=== PATIENT | female | born 1955 | race Caucasian/White ===

== ENCOUNTER → 2017-12-30 | Outpatient (CLI) | payer OTHER ==
--- NOTE | 2018-01-02 07:15 | MM ---
Reason for exam: screening (asymptomatic). Last mammogram was performed 2 years ago. History: Patient is postmenopausal. Physical Findings: A clinical breast exam by your physician is recommended on an annual basis and results should be correlated with mammographic findings. MG Screening Mammo w CAD Bilateral CC and MLO view(s) were taken. Prior study comparison: January 14, 2016, bilateral MG screening mammo w CAD. January 06, 2015, bilateral MG screening mammo w CAD. The breast tissue is almost entirely fat. There are typically benign round calcifications in both breasts. There is no discrete abnormality. ASSESSMENT: Benign, BI-RAD 2 RECOMMENDATION: Routine screening mammogram of both breasts in 1 year.
== END | disposition home or self-care (01) ==
LOC: RADMAMWWP 11:27
PROVIDERS: ATTEND Family Medicine
DX: Z12.31 Encounter for screening mammogram for malignant neoplasm of breast (principal)
CPT/HCPCS: 77067

== ENCOUNTER → 2019-02-06 | Outpatient (CLI) | payer OTHER ==
[2019-02-06 17:40] LABS: INR 0.9 (<1.2); Prothrombin Time 9.5 sec (9.0-12.0)
== END | disposition home or self-care (01) ==
LOC: LABPAT 16:22
PROVIDERS: ATTEND Anesthesiology
DX: Z01.812 Encounter for preprocedural laboratory examination (principal)
CPT/HCPCS: 36415; 85610; 85730

== ENCOUNTER 2019-02-12 07:30 | Inpatient (IN) | payer OTHER ==
--- NOTE | 2019-02-11 21:22 | HP ---
HISTORY AND PHYSICAL Surgery is scheduled for 02/12/2019. Muna Barillas, 63-year-old patient seen with symptomatic right hip osteoarthritis. Treatment options were discussed with her. She elected to proceed with right total hip arthroplasty. Consents obtained. Medical clearance was provided by Dr. Eric Oliva. PAST MEDICAL HISTORY: Asthma, qox-nzrsdjp-xnxkjwspi diabetes. PAST SURGICAL HISTORY: Noncontributory. MEDICATIONS: Metformin, omeprazole, Synthroid. ALLERGIES: CODEINE, VIBRAMYCIN. SOCIAL HISTORY: She denies tobacco use. PHYSICAL EVALUATION OF THE RIGHT HIP: Limited range of motion with severe pain, diffuse tenderness. Straight leg raise negative. She is 1 inch short right lower extremity. Distal neurovascular exam is intact. RADIOGRAPHS: Radiographs of the right hip reveals severe osteoarthritic changes. IMPRESSION: 1. Right hip osteoarthritis. 2. Hypothyroidism. 3. Zoy-xqjshfk-kclmuoams diabetes. 4. Gastroesophageal reflux disease. PLAN: Direct anterior right total hip arthroplasty. MMODL / IJN: [id number] /
[~2019-02-12 07:30] MED LIST: ACETAMINOPHEN TAB 500 MG TAB PO ONE; DEXAMETHASONE SOD PHOSPHATE 10 MG/ML 1 ML VIAL IV ONE; LACTATED RINGERS 1,000 ML IV SCH; LIDOCAINE 1% 20 ML VIAL (10MG/ML) FOR IV START INTRADERMA PRN; MELOXICAM 7.5 MG TAB PO ONE; ONDANSETRON 4 MG/2 ML VIAL IVP ONE; SCOPOLAMINE 1.5MG/72HR PATCH TRANSDERM ONE; TRANEXAMIC ACID 1,000 MG in SODIUM CHLORIDE 0.9% 100 ML IVPB ONE; ceFAZolin IN SWFI 2 GM/20 ML SYRINGE IVP ONE
[2019-02-12 08:38] LABS: Appearance,Urine Clear (Clear); Bacteria,Urine Rare /hpf; Bilirubin,Urine Negative (Negative); Blood,Urine Small (Negative); Color,Urine Yellow; Glucose,Urine (UA) Negative (Negative); Hyaline Casts,Urine 12 /lpf (0-2); Ketones,Urine Negative (Negative); Leukocyte Esterase,Urine Negative (Negative); Mucus,Urine Occasional /hpf; Nitrite,Urine Negative (Negative); Protein,Urine Negative (Negative); RBC,Urine 2 /hpf (0-5); Specific Gravity,Urine 1.018 (1.001-1.035); Squamous Epithelial Cell,Urine 2 /hpf (0-4); Urobilinogen,Urine <2.0 mg/dL (<2.0); WBC,Urine 1 /hpf (0-5)
[2019-02-12 08:43] LABS: Glucose,Whole Blood 105 mg/dL (75-99)
[2019-02-12] MEDS ORDERED: ROPIVACAINE 246.25 MG, EPINEPHrine 0.5 MG, KETOROLAC 30 MG, cloNIDine HCL/PF 80 MCG, WA... MISCELLANE ONE ×5 (09:59)
[2019-02-12] MEDS ORDERED: SODIUM CHLORIDE 0.9% 100 ML BAG ONE (10:39)
[2019-02-12] MEDS ORDERED: MIDAZOLAM 2 MG/2 ML VIAL ONE (10:39)
[2019-02-12] MEDS ORDERED: TRANEXAMIC ACID 1,000 MG/10 ML VIAL ONE (10:39)
[2019-02-12] MEDS ORDERED: fentaNYL (PF) 50 MCG/ML 2 ML AMP ONE (10:39)
[2019-02-12] MEDS ORDERED: PROPOFOL 10 MG/ML 20 ML VIAL IV ONE (10:39)
[2019-02-12] MEDS ORDERED: ceFAZolin 3,000 MG in SODIUM CHLORIDE 0.9% IRRIGATIO 3,000 ML IRRIGATION ONE (11:10)
[2019-02-12] MEDS ORDERED: LACTATED RINGERS 1,000 ML IV ONE ×2 (11:58)
--- NOTE | 2019-02-12 12:26 | P.OP ---
Date of Procedure: 02/12/19 Preoperative Diagnosis: Right hip osteoarthritis Postoperative Diagnosis: Right hip osteoarthritis Procedure(s) Performed: Direct anterior right total hip arthroplasty Implants: 1. Depuy Corail KA size 10 standard collar press-fit femoral stem 2. Depuy pinnacle 52 mm press-fit acetabular shell 3. Depuy pinnacle polyethylene acetabular liner neutral 36 mm ID 52 mm OD 4. Biolox delta ceramic femoral head +536 mm Anesthesia: local, spinal Surgeon: Abel Shrestha Machine Molder #1: Benny Bullock Estimated Blood Loss (ml): 100 Pathology: other (Femoral head) Condition: stable Disposition: PACU Indications for Procedure: 63-year-old patient seen with symptomatic right hip osteoarthritis. After treatment options were discussed, she elected to proceed with total hip arthroplasty. Operative Findings: see description of procedure Description of Procedure: The patient was taken to the operative suite. Patient underwent a spinal anesthetic by the department of anesthesia. Patient was then transferred to the [place] table. Patient was given preoperative IV antibiotics and TXA. Both lower extremities were placed in standard leg spars. The hip was then prepped and draped in the normal sterile orthopedic fashion. A standard anterior incision was made beginning 3 cm lateral and 1 cm distal to the ASIS extending 10 cm. Dissection was then carried down through the subcutaneous soft tissues down to the fascia overlying the tensor fascia leni. An incision was now made through the fascia. Careful dissection was taken down exposing the tensor fascia leni muscle. A Cobra retractor was now placed along the medial femoral neck and a second one along the lateral femoral neck. The venous circumflex vessels were now identified, cauterized and clipped. We identified the anterior hip capsule. An incision was made through the hip capsule along the lateral border. I performed a partial anterior capsulectomy. Retractors were now placed around the femoral neck itself. A femoral neck cut was now made with a sagittal saw. It was completed with an osteotome at the lateral neck area. The femoral head was now removed without difficulty. The extremity was now rotated to 45 of external rotation. It was locked in position. Residual labrum was now debrided out. Serial reaming was performed of the acetabulum while Sha COBOS assisted holding an anterior retractor for exposure. Once we reached the appropriate size and a trial was position and fit nicely. The appropriate size was now chosen opened and made available. It was introduced into the acetabulum without difficulty. The C-arm/fluoroscopy was now brought into the operative field. We made sure we had a true AP pelvic view. We now under direct C- arm/fluoroscopy introduced into the acetabular component with appropriate version and inclination. I held the cup in appropriate position well Sha COBOS used a mallet to seat the acetabular component. I noted the component now to be well seated and stable. I did introduce one single screw to augment the fixation. Acetabular cup introduce her was removed. The C-arm was pulled back. An appropriate liner was introduced and clicked into position. It was felt to be stable. At this point retractors were removed. The extremity was now placed into 120 external rotation with no traction. The leg was now dropped to the ground and adducted. Appropriate retractors were now positioned along the proximal femur. We also placed our femoral look into position. Additional capsular releasing was performed to gain access to the proximal femur. We now used a box osteotome. A canal finder was now utilized. Serial broaching was now performed with the assistance of Sha COBOS tapping the broaches down with a mallet while held the broach in appropriate rotation and position. This was done until we reached the appropriate size with good overall rotational stability. Appropriate calcar planing was performed. A tri al head/neck was placed into position. The hip was now reduced. The C- arm/fluoroscopy was brought back into the operative field. A spot film was obtained of the nonoperative hip. A spot film was obtained of the trial components. Overlays were performed, we noted good overall alignment and positioning for determining leg length. The C-arm/fluoroscopy was pulled back. Retractors were repositioned and the hip was dislocated. The leg was again taken down to the ground and adducted. Appropriate retractors were repositioned as well as the femoral hook. All trial components were removed. The femoral implant was opened along with the femoral head. The femoral implant was introduced on the appropriate handle into our pre-broached area. I held the component position well Sha COBOS used a mallet to seat the femoral component. The femoral component was now noted to be well seated and stable.. The femoral head was introduced with good positioning and fixation noted. Retractors were now removed. The hip was now reduced. There appeared be good positioning of the hip confirmed on intraoperative fluoroscopy. Spot films were obtained to document this. A second gram of TXA was given. The deep and superficial soft tissues were infiltrated with local analgesic. Bipolar cautery had been utilized intermittently through the procedure for hemostasis. The wound was irrigated copiously with pulse lavage mechanical irrigation. The fascia was repaired with Vicryl suture. The subcutaneous soft tissues were repaired in layers with Vicryl suture. The skin was approximated with skin tone. Sterile dressings were applied. Patient was then awakened, transferred to a bed and taken to recovery in stable condition. Sha COBOS assisted with the complex procedure.
[2019-02-12] MEDS ORDERED: HYDROcodone/APAP 7.5-325MG 1 EACH TAB PO PRN (12:27)
[2019-02-12] MEDS ORDERED: HYDROmorphone 0.5 MG/0.5 ML SYRINGE IVP PRN ×2 (12:27)
[2019-02-12] MEDS ORDERED: ONDANSETRON 4 MG/2 ML VIAL IVP PRN (12:27)
[2019-02-12] MEDS ORDERED: traMADol 50 MG TAB PO PRN (12:27)
[2019-02-12] MEDS ORDERED: NALOXONE 0.4 MG/ML 1 ML VIAL IV PRN (12:27)
[2019-02-12] MEDS ORDERED: HYDROmorphone 1 MG/ML 1 ML SYRINGE IVP PRN (12:27)
[2019-02-12] MEDS ORDERED: KETOROLAC 30 MG/ML 1 ML VIAL IVP ONE (14:04)
[2019-02-12] MEDS: HYDROmorphone 0.5 MG/0.5 ML SYRINGE IVP PRN ×2 (14:21→14:33)
--- NOTE | 2019-02-12 14:47 | XR ---
EXAMINATION TYPE: XR Hip Limited RT, FL guidance operating room DATE OF EXAM: 02/12/2019 COMPARISON: NONE HISTORY: 63-year-old female right hip osteoarthritis, hip replacement FINDINGS: Single anterior image after right hip total arthroplasty. FLUOROSCOPY Fluoroscopy time of 25 seconds was used during right hip replacement. 1 image/s document/s kale ivey. IMPRESSION: Fluoroscopy as above.
[2019-02-12] MEDS ORDERED: IPRATROPIUM-ALBUTEROL 3 ML NEB INHALATION PRN (16:49)
[2019-02-12 17:26] LABS: Glucose,Whole Blood 151 mg/dL (75-99)
[2019-02-12] MEDS: LACTATED RINGERS 1,000 ML IV SCH (17:35)
[2019-02-12] MEDS ORDERED: ALBUTEROL NEBULIZED 2.5 MG/3 ML INHALATION PRN (17:39)
[2019-02-12] MEDS: INSULIN ASPART (NovoLOG) 100 UNIT/ML VIAL SQ SCH ×2 (18:10→20:41)
[2019-02-12 18:45] VITALS: BMI 37.3
[2019-02-12 20:30] LABS: Glucose,Whole Blood 218 mg/dL (75-99)
[2019-02-12] MEDS: ceFAZolin IN SWFI 2 GM/20 ML SYRINGE IVP SCH (20:41)
[2019-02-12] MEDS: SENNOSIDES-DOCUSATE SODIUM 1 EACH TAB PO SCH (20:41)
[2019-02-12] MEDS: IPRATROPIUM-ALBUTEROL 3 ML NEB INHALATION SCH (21:09)
--- NOTE | 2019-02-12 23:40 | CONS ---
CONSULTATION CHIEF COMPLAINT: A 63-year-old white female for medical management consult status post right hip surgery replacement, history of COPD, GERD, hypothyroidism, diabetes mellitus, obesity. She is sitting on the side of bed. She has been up walking status post surgery. No medicines been reordered. No chest pain or shortness of breath. PAST MEDICAL HISTORY: As mentioned above. Surgeries as mentioned above. REVIEW OF SYMPTOMS: 14-point review of systems negative except for mentioned in HPI. PHYSICAL EXAMINATION: Sitting up, eating food for dinner. Temp 97, pulse 71, respiratory rate 16 to 18, blood pressure is 100 over 60s. She is about 95% on room air to 91%. Cardiovascular S1, S2. Lungs transmitted upper sounds. GI soft. Hematology negative Homans. Incision clean, dry, and trach right hip. Hematology negative Homans. ASSESSMENT: 1. Status post right hip replacement. 2. Hypothyroidism. 3. Diabetes mellitus. 4. Hypertension. 5. Chronic obstructive pulmonary disease. Continue current treatment. Follow up in the next 24 to 48 hours for discharge consult. MMODL / IJN: [id number] /
[2019-02-13] MEDS: LACTATED RINGERS 1,000 ML IV SCH ×2 (01:02→17:31)
[2019-02-13] MEDS: ceFAZolin IN SWFI 2 GM/20 ML SYRINGE IVP SCH (03:29)
[2019-02-13] MEDS: HYDROcodone/APAP 7.5-325MG 1 EACH TAB PO PRN ×3 (07:19→23:40)
[2019-02-13] MEDS: LISINOPRIL 2.5 MG TAB PO SCH (07:19)
[2019-02-13] MEDS: LEVOTHYROXINE 100 MCG TAB PO SCH (07:19)
[2019-02-13] MEDS: metFORMIN 500 MG TAB PO SCH (07:20)
[2019-02-13] MEDS: PANTOPRAZOLE 40 MG TABLET PO SCH (07:20)
[2019-02-13] MEDS: MELOXICAM 7.5 MG TAB PO SCH (07:22)
[2019-02-13] MEDS: ENOXAPARIN 40 MG/0.4 ML SYRINGE SQ SCH (07:22)
[2019-02-13] MEDS: IPRATROPIUM-ALBUTEROL 3 ML NEB INHALATION SCH ×4 (07:35→20:04)
[2019-02-13 07:46] LABS: Glucose,Whole Blood 111 mg/dL (75-99)
[2019-02-13] MEDS: INSULIN ASPART (NovoLOG) 100 UNIT/ML VIAL SQ SCH ×4 (07:53→21:02)
[2019-02-13] MEDS ORDERED: FAMOTIDINE 20 MG TAB PO SCH (09:00)
[2019-02-13 10:34] LABS: Anisocytosis Slight; Basophils % (A) 0 %; Eosinophils % (A) 0 %; HCT 31.3 % (34.0-46.0); HGB 9.8 gm/dL (11.4-16.0); Hypochromasia Moderate; Lymphocytes # (A) 1.5 k/uL (1.0-4.8); Lymphocytes % (A) 19 %; MCH 28.8 pg (25.0-35.0); MCHC 31.2 g/dL (31.0-37.0); MCV 92.3 fL (80.0-100.0); Mean Platelet Volume 7.8; Monocytes # (A) 0.4 k/uL (0-1.0); Monocytes % (A) 5 %; Neutrophils # (A) 5.9 k/uL (1.3-7.7); Neutrophils % (A) 75 %; Platelet Count 231 k/uL (150-450); RBC 3.39 m/uL (3.80-5.40); RDW 16.4 % (11.5-15.5); WBC 7.9 k/uL (3.8-10.6)
[2019-02-13 11:37] LABS: Glucose,Whole Blood 118 mg/dL (75-99)
--- NOTE | 2019-02-13 12:12 | P.PN ---
Subjective Progress Note Date: 02/13/19 Principal diagnosis: Status post direct anterior right total hip arthroplasty Patient is evaluated at bedside today, she is resting in her hospital bed at this time. She's been ambulating with therapy at this time. She states that she does have some discomfort throughout the right leg. She is nervous to go home today. She denies any chest pain or shortness of breath. Objective - Vital Signs Vital signs: Vital Signs Temp 98.1 F 02/13/19 07:07 Pulse 66 02/13/19 12:03 Resp 16 02/13/19 07:07 BP 101/52 02/13/19 07:07 Pulse Ox 92 L 02/13/19 07:07 Intake & Output 02/12/19 02/13/19 02/13/19 18:59 06:59 18:59 Intake Total 1401 400 Output Total 100 Balance 1301 400 Intake: IV 1401 400 Lactated Ringers 1,000 ml 400 @ 80 mls/hr IV .[id number] [facility] Rx#:[id number] Output: Estimated Blood Loss 100 Other: Voiding Method Toilet Toilet # Voids 1 1 - Exam Right lower extremity: Incision is clean, dry, and intact. The foam dressings in good position, There is minimal soft tissue swelling and ecchymosis surrounding the medial and lateral aspects of the incision. Calf is soft, no tenderness with palpation. Plantar flexion, dorsiflexion, EHL, FHL are intact. Sensory exam to light touch throughout the extremity is intact, dorsal pedis pulses 2+. - Labs CBC & Chem 7: 02/13/19 09:49 Labs: Abnormal Lab Results - Last 24 Hours (Table) 02/12/19 02/12/19 02/13/19 Range/Units 17:17 20:28 07:08 RBC (3.80-5.40) m/uL Hgb (11.4-16.0) gm/dL Hct (34.0-46.0) % RDW (11.5-15.5) % POC Glucose (mg/dL) 151 H 218 H 111 H (75-99) mg/dL 02/13/19 02/13/19 Range/Units 09:49 11:35 RBC 3.39 L (3.80-5.40) m/uL Hgb 9.8 L (11.4-16.0) gm/dL Hct 31.3 L (34.0-46.0) % RDW 16.4 H (11.5-15.5) % POC Glucose (mg/dL) 118 H (75-99) mg/dL Microbiology - Last 24 Hours (Table) 02/12/19 08:05 Urine Culture - Preliminary Urine,Clean Catch Assessment and Plan Plan: Assessment: Postoperative #1 status post direct anterior right total hip arthroplasty Plan: Pain control, continue oral medication as needed GI and DVT prophylaxis, continue current medication Wound care instructions were discussed Encourage incentive spirometer Continue work with physical therapy Medical recommendations Discharge planning: Patient will be discharged home likely tomorrow Time with Patient: Less than 30
[2019-02-13 16:54] LABS: Glucose,Whole Blood 100 mg/dL (75-99)
[2019-02-13 20:00] LABS: Glucose,Whole Blood 118 mg/dL (75-99)
[2019-02-13] MEDS: SENNOSIDES-DOCUSATE SODIUM 1 EACH TAB PO SCH (21:02)
[2019-02-14] MEDS: LACTATED RINGERS 1,000 ML IV SCH ×2 (03:50→14:19)
[2019-02-14 07:08] LABS: Glucose,Whole Blood 90 mg/dL (75-99)
[2019-02-14] MEDS: INSULIN ASPART (NovoLOG) 100 UNIT/ML VIAL SQ SCH ×4 (07:11→19:59)
[2019-02-14] MEDS: IPRATROPIUM-ALBUTEROL 3 ML NEB INHALATION SCH ×4 (07:12→22:11)
[2019-02-14] MEDS: ENOXAPARIN 40 MG/0.4 ML SYRINGE SQ SCH (07:16)
[2019-02-14] MEDS: HYDROcodone/APAP 7.5-325MG 1 EACH TAB PO PRN ×4 (07:16→20:46)
[2019-02-14] MEDS: metFORMIN 500 MG TAB PO SCH (07:17)
[2019-02-14] MEDS: LEVOTHYROXINE 100 MCG TAB PO SCH (07:17)
[2019-02-14] MEDS: MELOXICAM 7.5 MG TAB PO SCH (07:17)
[2019-02-14] MEDS: PANTOPRAZOLE 40 MG TABLET PO SCH (07:17)
[2019-02-14] MEDS: LISINOPRIL 2.5 MG TAB PO SCH (07:17)
--- NOTE | 2019-02-14 10:48 | P.PN ---
Subjective Progress Note Date: 02/14/19 Principal diagnosis: Status post direct anterior right total hip arthroplasty Patient is evaluated at bedside today, she is resting in her hospital bed at this time. She denies any chest pain or shortness of breath. Objective - Vital Signs Vital signs: Vital Signs Temp 97.8 F 02/14/19 07:41 Pulse 80 02/14/19 07:41 Resp 16 02/14/19 07:41 BP 121/61 02/14/19 07:41 Pulse Ox 95 02/14/19 07:41 Intake & Output 02/13/19 02/14/19 02/14/19 18:59 06:59 18:59 Other: Voiding Method Toilet Toilet Toilet # Voids 1 2 1 - Exam Right lower extremity: Incision is clean, dry, and intact. The foam dressings in good position, There is minimal soft tissue swelling and ecchymosis surrounding the medial and lateral aspects of the incision. Calf is soft, no tenderness with palpation. Plantar flexion, dorsiflexion, EHL, FHL are intact. Sensory exam to light touch throughout the extremity is intact, dorsal pedis pulses 2+. - Labs CBC & Chem 7: 02/13/19 09:49 Labs: Abnormal Lab Results - Last 24 Hours (Table) 02/13/19 02/13/19 02/13/19 Range/Units 11:35 16:52 19:56 POC Glucose (mg/dL) 118 H 100 H 118 H (75-99) mg/dL Microbiology - Last 24 Hours (Table) 02/12/19 08:05 Urine Culture - Final Urine,Clean Catch Assessment and Plan Plan: Assessment: Postoperative #2 status post direct anterior right total hip arthroplasty Plan: Pain control, plan for discharge on oral medication GI and DVT prophylaxis, aspirin 81mg bid Wound care instructions were discussed Encourage incentive spirometer Continue work with physical therapy Medical recommendations Discharge planning: Patient will be discharged home likely today Time with Patient: Less than 30
[2019-02-14 11:35] LABS: Glucose,Whole Blood 92 mg/dL (75-99)
--- NOTE | 2019-02-14 11:47 | P.CONS ---
History of Present Illness - Reason for Consult Consult date: 02/13/19 Medical management asthma, COPD, GERD,HTN, hypothyroidism Requesting physician: Abel Shrestha - Chief Complaint Symptomatic right hip osteoarthritis, S/P elective anterior right total Hip - History of Present Illness This is a 63-year-old female with history of atrial flutter, asthma, COPD, diabetes mellitus, gastroesophageal reflux disease, hypertension, osteoarthri tis, hypothyroidism and multiple other medical issues admitted with symptomatic severe right hip osteoarthritis. Patient is status post elective right total hip arthroplasty, tolerated procedure well. Patient up in chair, ambulating, tolerating exertion well. Using incentive spirometer, up to 1500. Reports surgical pain. Good diet intake with no nausea vomiting or diarrhea. Passing flatus, no bowel movement. Denies abdominal pain. Denies lightheadedness dizziness or focal deficits. Denies chest pain, palpitations or increasing shortness of breath.VSS. Review of Systems Review of systems: CONSTITUTIONAL: No fever, no malaise, no fatigue. HEENT: No recent visual problems or hearing problems. Denied any sore throat. CARDIOVASCULAR: No chest pain, orthopnea, PND, no palpitations, no syncope. PULMONARY: No shortness of breath, no cough, no hemoptysis. GASTROINTESTINAL: No diarrhea, no nausea, no vomiting, no abdominal pain. Normoactive bowel sounds. NEUROLOGICAL: No headaches, no weakness, no numbness. HEMATOLOGICAL: Denies any bleeding or petechiae. GENITOURINARY: Denies any burning micturition, frequency, or urgency. MUSCULOSKELETAL/RHEUMATOLOGICAL: Reports significant right hip/leg pain with associated muscle weakness ENDOCRINE: Denies any polyuria or polydipsia. PSYCHIATRIC: No anxiety, no depression The rest of the 14 point review of systems is negative Past Medical History Past Medical History: Atrial Flutter, Asthma, COPD, Diabetes Mellitus, GERD/Reflux, Hypertension, Osteoarthritis (OA), Pneumonia, Thyroid Disorder Additional Past Medical History / Comment(s): RECENT ADMISSION AT [facility] FOR PNEUMONIA. CHRONIC PNEUMONIA. History of Any Multi-Drug Resistant Organisms: None Reported Past Surgical History: Hysterectomy Additional Past Surgical History / Comment(s): CYST REMOVAL FROM HEAD AND SHOULDER. HEART CATH-NEG. Past Anesthesia/Blood Transfusion Reactions: Motion Sickness, Postoperative Nausea & Vomiting (PONV) Past Psychological History: Anxiety Additional Psychological History / Comment(s): TAKES NO MEDS Smoking Status: Never smoker Past Alcohol Use History: None Reported Additional Past Alcohol Use History / Comment(s): QUIT ABOUT 2008, 1PPD, FOR 30+. Past Drug Use History: None Reported - Past Family History Father Family Medical History: Deep Vein Thrombosis (DVT) Medications and Allergies Home Medications Medication Instructions Recorded Confirmed Type Albuterol Inhaler [Ventolin Hfa 1 puff INHALATION RT-QID PRN 02/06/19 02/12/19 History Inhaler] Ibuprofen [Motrin] 400 - 800 mg PO Q6H PRN 02/06/19 02/12/19 History Levothyroxine Sodium 200 mcg PO QAM 02/06/19 02/12/19 History Lisinopril [Zestril] 2.5 mg PO QAM 02/06/19 02/12/19 History Naproxen Sodium [Aleve] 220 - 440 mg PO Q6H PRN 02/06/19 02/12/19 History Omeprazole 20 mg PO QAM 02/06/19 02/12/19 History metFORMIN HCL 250 mg PO QAM 02/06/19 02/12/19 History Aspirin [Adult Low Dose Aspirin EC] 81 mg PO BID #60 tablet. 02/14/19 Rx Docusate [Colace] 100 mg PO DAILY #30 capsule 02/14/19 Rx HYDROcodone/APAP 7.5-325MG [Anna 1 - 2 each PO Q6HR PRN #56 tab 02/14/19 Rx 7.5] traMADol HCl [Ultram] 50 mg PO Q6H PRN #28 tab 02/14/19 Rx Allergies Allergy/AdvReac Type Severity Reaction Status Date / Time codeine Allergy Nausea & Verified 02/12/19 10:17 Vomiting doxycycline [From Vibramycin] Allergy Rash/Hives Verified 02/12/19 10:17 Physical Exam Vitals: Vital Signs Temp Pulse Pulse Resp BP Pulse Ox 02/13/19 16:07 70 02/13/19 16:00 68 02/13/19 13:14 98.0 F 74 16 142/90 96 02/13/19 12:03 66 02/13/19 11:54 66 02/13/19 07:46 70 02/13/19 07:37 66 02/13/19 07:07 98.1 F 71 16 101/52 92 L 02/13/19 02:21 97.8 F 66 17 111/67 93 L 02/12/19 21:26 72 02/12/19 21:09 72 02/12/19 19:55 97.7 F 71 18 101/68 91 L Intake and Output 02/13/19 02/13/19 02/13/19 06:59 14:59 22:59 Intake Total 400 Balance 400 Intake: IV 400 Lactated Ringers 1,000 ml 400 @ 80 mls/hr IV .[id number] [facility] Rx#:[id number] Other: Voiding Method Toilet # Voids 1 1 PHYSICAL EXAM: VITAL SIGNS: As above GENERAL: Sitting up in chair, no acute distress HEENT: Conjunctivae normal. eyes normal. Oral mucosa moist NECK: No JVD. No thyroid enlargement. No LNs CARDIOVASCULAR: S1, S2 regular.. No murmur RESPIRATION: Breath sounds diminished in the bases. No rhonchi or crackles. No bronchial breathing. ABDOMEN: Soft, nontender . No guarding. no masses palpable. Bowel sounds heard. EXTREMITIES: Minimal right hip/thigh edema and ecchymosis, dressing clean dry and intact. No calf pain or tenderness. Positive DP and PT pulses. PSYCHIATRY: Alert and oriented ?-3, mood and affect normal. NERVOUS SYSTEM: Cranial N 2-12 grossly normal. Moves all 4 limbs. Diffuse weakness No focal deficits. Strength and sensation grossly intact.. Lymphatic system. No LN neck axilla or groin. Results Results: -Severe right hip osteoarthritis, status post anterior right total hip arth roplasty -Diabetes mellitus -Hypertension -Gastroesophageal reflux disease CBC & Chem 7: 02/13/19 09:49 Labs: Abnormal Lab Results - Last 24 Hours (Table) 02/12/19 02/12/19 02/13/19 Range/Units 17:17 20:28 07:08 RBC (3.80-5.40) m/uL Hgb (11.4-16.0) gm/dL Hct (34.0-46.0) % RDW (11.5-15.5) % POC Glucose (mg/dL) 151 H 218 H 111 H (75-99) mg/dL 02/13/19 02/13/19 Range/Units 09:49 11:35 RBC 3.39 L (3.80-5.40) m/uL Hgb 9.8 L (11.4-16.0) gm/dL Hct 31.3 L (34.0-46.0) % RDW 16.4 H (11.5-15.5) % POC Glucose (mg/dL) 118 H (75-99) mg/dL Microbiology - Last 24 Hours (Table) 02/12/19 08:05 Urine Culture - Final Urine,Clean Catch Assessment and Plan Assessment: -Severe right hip osteoarthritis, status post anterior right total hip arthroplasty -Hypertension -Diabetes mellitus -Gastroesophageal reflux disease -COPD, asthma, chronic intermittent-both stable -Hypothyroidism Plan: Continue on current medication regime , Senokot S, monitoring and symptomatic treatment. Pain management, DVT prophylaxis as per primary- orthopedic surgery. PT. GI prophylaxis added to med regime. Home meds have been reviewed and resumed. Close monitoring of Accu-Cheks. Patient expresses fear of taking pain medications related to her daughter is addicted. Reinforced the need for taking pain medications appropriately prn as ordered, throughout this acute phase. Aggressive pulmonary toileting with incentive spirometer reinforced. Futher recommendations to follow. Thank you for allowing us to participate in the care of this pleasant lady. The impression and plan of care has been dictated as directed. : I performed a history and examination of this patient, discussed the same with the dictator. I agree with the dictator's note ,documented as a scribe. Any additional findings or plans will be noted. Time taken: 35 minutes
--- NOTE | 2019-02-14 12:05 | P.PN ---
Subjective Progress Note Date: 02/14/19 This is a 63-year-old female with history of atrial flutter, asthma, COPD, diabetes mellitus, gastroesophageal reflux disease, hypertension, osteoarthritis, hypothyroidism and multiple other medical issues admitted with symptomatic severe right hip osteoarthritis. Patient is status post elective right total hip arthroplasty, tolerated procedure well. Patient up in chair, ambulating, tolerating exertion well. Using incentive spirometer, up to 1500. Reports surgical pain. Good diet intake with no nausea vomiting or diarrhea. Passing flatus, no bowel movement. Denies abdominal pain. Denies lighth eadedness dizziness or focal deficits. Denies chest pain, palpitations or increasing shortness of breath.VSS. 02/14/2019 patient teary-eyed this morning. Apparently patient had refrained from taking pain medication throughout the night. Therefore did not rest well and in uncontrolled pain. Reinstructed on pain management. Recently,Received pain medication. Ambulated in the hallway, tolerated exertion well. Good diet intake, no nausea or vomiting. Positive bowel movement, positive flatus. Denies chest pain, palpitations or shortness of breath. Denies lightheadedness dizziness or focal deficits. Objective - Vital Signs Vital signs: Vital Signs Temp 97.8 F 02/14/19 07:41 Pulse 80 02/14/19 07:41 Resp 16 02/14/19 07:41 BP 121/61 02/14/19 07:41 Pulse Ox 95 02/14/19 07:41 Intake & Output 02/13/19 02/14/19 02/14/19 18:59 06:59 18:59 Other: Voiding Method Toilet Toilet Toilet # Voids 1 2 1 - Exam VITAL SIGNS: As above GENERAL: Sitting up in bed, no acute distress, teary-eyed HEENT: Conjunctivae normal. eyes normal. Oral mucosa moist NECK: No JVD. No thyroid enlargement. No LNs CARDIOVASCULAR: S1, S2 regular.. No murmur RESPIRATION: Breath sounds diminished in the bases. No rhonchi or crackles. No bronchial breathing. ABDOMEN: Soft, nontender . No guarding. no masses palpable. Bowel sounds heard. EXTREMITIES: Minimal right hip/thigh edema and ecchymosis, dressing clean dry and intact. No calf pain or tenderness. Positive DP and PT pulses. PSYCHIATRY: Alert and oriented ?-3, mood and affect normal. NERVOUS SYSTEM: Cranial N 2-12 grossly normal. Moves all 4 limbs. Diffuse weakness No focal deficits. Strength and sensation grossly intact.. Lymphatic system. No LN neck axilla or groin. - Labs CBC & Chem 7: 02/13/19 09:49 Labs: Abnormal Lab Results - Last 24 Hours (Table) 02/13/19 02/13/19 02/13/19 Range/Units 11:35 16:52 19:56 POC Glucose (mg/dL) 118 H 100 H 118 H (75-99) mg/dL Microbiology - Last 24 Hours (Table) 02/12/19 08:05 Urine Culture - Final Urine,Clean Catch Assessment and Plan Assessment: -Severe right hip osteoarthritis, status post anterior right total hip arthroplasty -Hypertension -Diabetes mellitus -Gastroesophageal reflux disease -COPD, asthma, chronic intermittent-both stable -Hypothyroidism Plan: Continue on current medication regime , Senokot S, monitoring and symptomatic treatment. Reinforced pain management/rationale. Aggressive pulmonary toileting with incentive spirometer reinforced.PT-reinforced increas ing ambulation as tolerated and being up in the chair when not ambulating. DVT prophylaxis as per primary- orthopedic surgery. Reevaluate this afternoon, pain management with potential discharge planning in progress as per orthopedic surgery. Follow-up with PCP in one week. Thank you for allowing us to participate in the care of this pleasant lady. The impression and plan of care has been dictated as directed. : I performed a history and examination of this patient, discussed the same with the dictator. I agree with the dictator's note ,documented as a scribe. Any additional findings or plans will be noted. Time taken: 35 minutes
[2019-02-14 16:39] LABS: Glucose,Whole Blood 101 mg/dL (75-99)
[2019-02-14] MEDS: ACETAMINOPHEN TAB 325 MG TAB PO PRN (19:10)
[2019-02-14 19:57] LABS: Glucose,Whole Blood 118 mg/dL (75-99)
[2019-02-14] MEDS: SENNOSIDES-DOCUSATE SODIUM 1 EACH TAB PO SCH (20:04)
[2019-02-15] MEDS: HYDROcodone/APAP 7.5-325MG 1 EACH TAB PO PRN ×3 (02:02→14:24)
[2019-02-15] MEDS: LACTATED RINGERS 1,000 ML IV SCH (02:06)
[2019-02-15 02:40] VITALS: TEMP 98
[2019-02-15] MEDS: LEVOTHYROXINE 100 MCG TAB PO SCH (05:50)
[2019-02-15 07:06] LABS: Glucose,Whole Blood 113 mg/dL (75-99)
[2019-02-15] MEDS: INSULIN ASPART (NovoLOG) 100 UNIT/ML VIAL SQ SCH ×2 (07:46→12:07)
[2019-02-15 08:19] VITALS: BP 111/54; RESP 16
[2019-02-15] MEDS: PANTOPRAZOLE 40 MG TABLET PO SCH (08:19)
[2019-02-15] MEDS: IPRATROPIUM-ALBUTEROL 3 ML NEB INHALATION SCH ×3 (08:21→15:42)
[2019-02-15 08:43] LABS: Anisocytosis Slight; Basophils % (A) 0 %; Eosinophils # (A) 0.1 k/uL (0-0.7); Eosinophils % (A) 2 %; HCT 30.5 % (34.0-46.0); HGB 9.2 gm/dL (11.4-16.0); Hypochromasia Moderate; Lymphocytes # (A) 1.4 k/uL (1.0-4.8); Lymphocytes % (A) 22 %; MCH 28.3 pg (25.0-35.0); MCHC 30.3 g/dL (31.0-37.0); MCV 93.6 fL (80.0-100.0); Mean Platelet Volume 7.2; Monocytes # (A) 0.3 k/uL (0-1.0); Monocytes % (A) 5 %; Neutrophils # (A) 4.3 k/uL (1.3-7.7); Neutrophils % (A) 69 %; Platelet Count 231 k/uL (150-450); RBC 3.26 m/uL (3.80-5.40); RDW 16.2 % (11.5-15.5); WBC 6.3 k/uL (3.8-10.6)
[2019-02-15] MEDS: MELOXICAM 7.5 MG TAB PO SCH (10:52)
[2019-02-15] MEDS: metFORMIN 500 MG TAB PO SCH (10:52)
[2019-02-15] MEDS: LISINOPRIL 2.5 MG TAB PO SCH (10:53)
[2019-02-15] MEDS: ENOXAPARIN 40 MG/0.4 ML SYRINGE SQ SCH (10:53)
[2019-02-15] MEDS: ACETAMINOPHEN TAB 325 MG TAB PO PRN (10:53)
--- NOTE | 2019-02-15 11:24 | P.PN ---
Subjective Progress Note Date: 02/15/19 Principal diagnosis: Status post direct anterior right total hip arthroplasty Patient is evaluated at bedside today, she is resting in her hospital bed at this time. She denies any chest pain or shortness of breath. Objective - Vital Signs Vital signs: Vital Signs Temp 98.0 F 02/15/19 07:21 Pulse 72 02/15/19 08:31 Resp 16 02/15/19 08:31 BP 111/54 02/15/19 07:21 Pulse Ox 90 L 02/15/19 07:21 Intake & Output 02/14/19 02/15/19 02/15/19 18:59 06:59 18:59 Intake Total 280 180 Balance 280 180 Intake: Oral 280 180 Other: Voiding Method Toilet Toilet # Voids 1 - Exam Right lower extremity: Incision is clean, dry, and intact. The foam dressings in good position, There is minimal soft tissue swelling and ecchymosis surrounding the medial and lateral aspects of the incision. Calf is soft, no tenderness with palpation. Plantar flexion, dorsiflexion, EHL, FHL are intact. Sensory exam to light touch throughout the extremity is intact, dorsal pedis pulses 2+. - Labs CBC & Chem 7: 02/15/19 08:09 Labs: Abnormal Lab Results - Last 24 Hours (Table) 02/14/19 02/14/19 02/15/19 Range/Units 16:33 19:55 07:03 RBC (3.80-5.40) m/uL Hgb (11.4-16.0) gm/dL Hct (34.0-46.0) % MCHC (31.0-37.0) g/dL RDW (11.5-15.5) % POC Glucose (mg/dL) 101 H 118 H 113 H (75-99) mg/dL 02/15/19 Range/Units 08:09 RBC 3.26 L (3.80-5.40) m/uL Hgb 9.2 L (11.4-16.0) gm/dL Hct 30.5 L (34.0-46.0) % MCHC 30.3 L (31.0-37.0) g/dL RDW 16.2 H (11.5-15.5) % POC Glucose (mg/dL) (75-99) mg/dL Assessment and Plan Plan: Assessment: Postoperative #3 status post direct anterior right total hip arthroplasty Plan: Pain control, plan for discharge on oral medication GI and DVT prophylaxis, aspirin 81mg bid Wound care instructions were discussed Encourage incentive spirometer Continue work with physical therapy Medical recommendations Discharge planning: Patient will be discharged home today Time with Patient: Less than 30
--- NOTE | 2019-02-15 11:28 | P.DS ---
Providers Date of admission: 02/12/19 07:48 Expected date of discharge: 02/15/19 Attending physician: Abel Shrestha Consults: 02/12/19 12:27 Consult Physician Routine Consulting Provider: Eric Oliva Reason/Comments: Medical management Do you want consulting provider notified?: Yes Primary care physician: Eric Oliva [place] Course: Date of admission: 02/12/2019 Date of discharge: 02/15/2019 Admission diagnosis: Status post direct anterior right total hip arthroplasty Discharge diagnosis: Same Attending physician: Dr. Shrestha Surgical procedures: Direct anterior right total hip arthroplasty Brief history: Patient is a 63-year-old female with a history of progressive primary right hip osteoarthritis. At this point patient has failed conservative treatment measures and has opted to proceed with a elective right total hip arthroplasty. Hospital course: Details of patient's surgery can be found in operative report. Patient tolerated the procedure well and was subsequently transported to orthopedic floor. Patient's orthopeidc and medical care was provided daily. Patient had daily laboratory tests performed for evaluation of overall blood counts. Patient had daily physical therapy to include strengthening range of motion as well as education with walker ambulation. Patient was treated with Lovenox for their postoperative DVT prophylaxis during their inpatient stay. Patient was noted to have a relatively uneventful postoperative course. Patient reported satisfactory pain control with oral pain medications by postoperative day 0. Patient showed satisfactory progress with physical therapy. Patient moved steadily through the program and had no difficulty meeting the goals by postoperative day 3. Given patient's otherwise satisfactory course and having met physical therapy goals, plan is to discharge patient home on postoperative day 3. Discharge condition/disposition: Patient will be discharged home in stable condition. Discharge medications: Instructions are given on resumption of patient's normal daily medications per primary care recommendation, in addition patient will be prescribed Greenwood 7.5 mg/325 mg, tramadol 50 mg, Colace 100 mg, aspirin 81 mg, ferrous sulfate 325 mg, Zofran 8mg. Discharge instructions: 1. Wound care and infection precautions, keep incision dry and covered while showering, no lotions, creams, moisturizers. No soaking, tubs, pools, hottubs. Do not scrub over the incision. 2. Weight-bear [as tolerated] with walker / cane until follow-up. 3. Ice and elevate when necessary. Do not exceed 20 minutes per hour with ice pack. 4. Utilize compression sleeve until seen at first follow up appointment. 5. Visiting nursing care. 6. Home physical therapy. 7. Pain meds and anticoagulants per prescription. 8. Pain medication has potential to cause constipation. Increase oral fluid and fiber intake. Contact primary care provider if you have not had a bowel movement within 48 hours after discharge 9. No anti-inflammatory medication until discussed at first post operative visit, this including Motrin, Aleve, Mobic, Diclofenac. 10. Follow up in office at 2 weeks postop with Sha Bullock PA-C 11. Follow up with your primary care doctor 7-10 days after discharge. 12. Contact [facility] with any questions, . Procedures: Direct anterior right total hip arthroplasty Patient Condition at Discharge: Good Plan - Discharge Summary Discharge Rx Participant: No New Discharge Prescriptions: New Aspirin [Adult Low Dose Aspirin EC] 81 mg PO BID #60 tablet. Docusate [Colace] 100 mg PO DAILY #30 capsule HYDROcodone/APAP 7.5-325MG [Greenwood 7.5] 1 - 2 each PO Q6HR PRN #56 tab PRN Reason: Pain traMADol HCl [Ultram] 50 mg PO Q6H PRN #28 tab PRN Reason: Pain Ferrous Sulfate [Iron (65 MG Elemental)] 325 mg PO BID #30 tab Ondansetron HCl [Zofran] 8 mg PO DAILY PRN #30 tablet PRN Reason: Nausea No Action Levothyroxine Sodium 200 mcg PO QAM Ibuprofen [Motrin] 400 - 800 mg PO Q6H PRN PRN Reason: Pain Naproxen Sodium [Aleve] 220 - 440 mg PO Q6H PRN PRN Reason: Pain Lisinopril [Zestril] 2.5 mg PO QAM metFORMIN HCL 250 mg PO QAM Omeprazole 20 mg PO QAM Albuterol Inhaler [Ventolin Hfa Inhaler] 1 puff INHALATION RT-QID PRN PRN Reason: Shortness Of Breath Or Wheezing Discharge Medication List Albuterol Inhaler [Ventolin Hfa Inhaler] 1 puff INHALATION RT-QID PRN 02/06/19 [History] Ibuprofen [Motrin] 400 - 800 mg PO Q6H PRN 02/06/19 [History] Levothyroxine Sodium 200 mcg PO QAM 02/06/19 [History] Lisinopril [Zestril] 2.5 mg PO QAM 02/06/19 [History] Naproxen Sodium [Aleve] 220 - 440 mg PO Q6H PRN 02/06/19 [History] Omeprazole 20 mg PO QAM 02/06/19 [History] metFORMIN HCL 250 mg PO QAM 02/06/19 [History] Aspirin [Adult Low Dose Aspirin EC] 81 mg PO BID #60 tablet.dr 02/14/19 [Rx] Docusate [Colace] 100 mg PO DAILY #30 capsule 02/14/19 [Rx] Ferrous Sulfate [Iron (65 MG Elemental)] 325 mg PO BID #30 tab 02/14/19 [Rx] HYDROcodone/APAP 7.5-325MG [Greenwood 7.5] 1 - 2 each PO Q6HR PRN #56 tab 02/14/19 [Rx] traMADol HCl [Ultram] 50 mg PO Q6H PRN #28 tab 02/14/19 [Rx] Ondansetron HCl [Zofran] 8 mg PO DAILY PRN #30 tablet 02/15/19 [Rx] Follow up Appointment(s)/Referral(s): [facility],Equipment [NON-STAFF] - Eric Oliva MD [Primary Care Provider] - 02/21/19 9:30 am [facility], [NON-STAFF] - Benny Bullock PAC [PHYSICIAN JACK MACHINE OPERATOR] - 02/28/19 10:20 am Activity/Diet/Wound Care/Special Instructions: Orthopedic Discharge Instructions: 1. Wound care and infection precautions, keep incision dry and covered while showering, no lotions, creams, moisturizers. No soaking, pools, hot tubs. Do not scrub over incision. 2. Weight-bear as tolerated with walker / cane until follow-up. 3. Ice and elevate when necessary. Do not exceed 20 minutes per hour with ice pack. 4. Utilize compression sleeve until seen at first follow up appointment. 5. Pain meds and anticoagulants per prescription. 6. Pain medication has potential to cause constipation. Increase oral fluid and fiber intake. Contact primary care provider if you have not had a bowel movement within 48 hours after discharge. 7. No anti-inflammatory medication until discussed at first post operative visit, this including Motrin, Aleve, Mobic, Diclofenac. 8. Follow up in office at 2 weeks postop with Sha Bullock PA-C 9. Follow up with your primary care doctor 7-10 days after discharge. 10. Contact [facility] with any questions, [phone]. 11. [facility] will deliver walker to the bedside prior to discharge. Wound care instructions: 1. Please remove Optifoam bandage on 02/19/2019 2. After removal of bandage, utilize basic gauze pads 3. Keep incision covered and dry while showering, do not remove tone Discharge Disposition: HOME WITH HOME HEALTH SERVICES
[2019-02-15 11:34] LABS: Glucose,Whole Blood 106 mg/dL (75-99)
[2019-02-15 15:41] VITALS: PULSE 77
== END 2019-02-15 15:50 | disposition home health service (06) | DRG 470 ==
LOC: 2ORMAIN 07:48 → 4SSUR 16:09
PROVIDERS: ADMIT Orthopaedic Surgery; ATTEND Orthopaedic Surgery
PROC: 0SR904A Replacement of Right Hip Joint with Ceramic on Polyethylene Synthetic Substitute, Uncemented, Open Approach (ICD-10-PCS; principal; 2019-02-12 10:15)
DX: M16.11 Unilateral primary osteoarthritis, right hip (principal); E66.9 Obesity, unspecified; E03.9 Hypothyroidism, unspecified; I10 Essential (primary) hypertension; J44.9 Chronic obstructive pulmonary disease, unspecified; J45.20 Mild intermittent asthma, uncomplicated; K21.9 Gastro-esophageal reflux disease without esophagitis; F41.9 Anxiety disorder, unspecified; E11.9 Type 2 diabetes mellitus without complications; Z68.37 Body mass index [BMI] 37.0-37.9, adult; Z79.84 Long term (current) use of oral hypoglycemic drugs; Z79.890 Hormone replacement therapy; Z79.899 Other long term (current) drug therapy; Z90.710 Acquired absence of both cervix and uterus; Z87.01 Personal history of pneumonia (recurrent); Z86.79 Personal history of other diseases of the circulatory system; Z88.1 Allergy status to other antibiotic agents; Z88.5 Allergy status to narcotic agent; Z83.2 Family history of diseases of the blood and blood-forming organs and certain disorders involving the immune mechanism
CPT/HCPCS: 73501; 81001; 85025; 86850; 86900; 86901; 87086; 88300; 94640

== ENCOUNTER 2019-05-16 06:14 | Day surgery (SDC) | payer OTHER ==
[2019-05-15 08:49] VITALS: BMI 36.9
[~2019-05-16 06:14] MED LIST changes: -ACETAMINOPHEN TAB 500 MG TAB PO ONE; +HYDROmorphone 0.5 MG/0.5 ML SYRINGE IVP PRN; -MELOXICAM 7.5 MG TAB PO ONE; +MIDAZOLAM 2 MG/2 ML VIAL IV PRN; -TRANEXAMIC ACID 1,000 MG in SODIUM CHLORIDE 0.9% 100 ML IVPB ONE; -ceFAZolin IN SWFI 2 GM/20 ML SYRINGE IVP ONE
[2019-05-16] MEDS ORDERED: TETRACAINE 0.5% OPHTH (PF) DROPS 4 ML BTL BOTH EYES ONE (06:15)
[2019-05-16] MEDS ORDERED: TETRACAINE 0.5% OPHTH DROPS 15 ML BTL BOTH EYES ONE (06:15)
[2019-05-16 06:45] VITALS: RESP 16; TEMP 98
[2019-05-16] MEDS: TROPICAMIDE 1% OPHTH DROPS 2 ML BTL LEFT EYE ONE ×3 (06:57→07:32)
[2019-05-16] MEDS: PHENYLEPHRINE 2.5% OPHTH DRP 2ML OP NR ×4 (07:01→07:34)
[2019-05-16] MEDS: CYCLOPENTOLATE 1% OPHTH SOLN 2 ML BTL OP ONE ×3 (07:08→07:36)
[2019-05-16] MEDS: MOXIFLOXACIN HCL 0.5% DROPS 3 ML BTL OP ONE ×3 (07:15→07:38)
[2019-05-16 07:33] LABS: Glucose,Whole Blood 80 mg/dL (75-99)
[2019-05-16 07:33] LABS: Glucose,Whole Blood 102 mg/dL (75-99)
[2019-05-16] MEDS ORDERED: MIDAZOLAM 2 MG/2 ML VIAL ONE (07:56)
[2019-05-16] MEDS ORDERED: fentaNYL (PF) 50 MCG/ML 2 ML AMP ONE (07:56)
[2019-05-16] MEDS ORDERED: DUOVISC KIT (BLUE BOX) INTRAOCULA ONE ×2 (07:59)
[2019-05-16] MEDS ORDERED: BRIMONIDINE TARTRATE 0.2% DROPS 5 ML BTL LEFT EYE ONE (07:59)
[2019-05-16] MEDS ORDERED: BALANCED SALT IRRIG SOLN COMB2 15 ML IRRIG.SOLN IRRIGATION ONE (07:59)
[2019-05-16] MEDS ORDERED: CIPROFLOXACIN 0.3% OPHTH SOLN 5 ML BTL LEFT EYE ONE (07:59)
[2019-05-16] MEDS ORDERED: prednisoLONE ACETATE 1% OPHTH DROPS 5 ML BTL LEFT EYE SCH (08:00)
[2019-05-16] MEDS ORDERED: LIDOCAINE (PF) 10 MG/ML 5ML AMP MISCELLANE ONE (08:01)
[2019-05-16] MEDS ORDERED: EPINEPHrine (PF) 0.5 ML in BALANCED SALT IRRIG SOLN COMB2 500 ML IRRIGATION ONE (08:07)
--- NOTE | 2019-05-16 09:05 | P.OP ---
Date of Procedure: 05/16/19 Preoperative Diagnosis: Visually significant cataract, left eye with the use of malyugan ring #2 posterior synechiae, left eye Postoperative Diagnosis: Same as above Procedure(s) Performed: 1 Complex cataract extraction with the use of malyugan ring, left eye 2 synechia lysis, left eye Anesthesia: local Surgeon: Shruti Treviño Estimated Blood Loss (ml): 0 Condition: stable Description of Procedure: The patient was identified in the preoperative holding area and informed consent was obtained. The patient understood the risks benefits alternatives and indications of cataract surgery. Patient showed the different options including intraocular lens options. The left eye was verified with the patient the patient was taken to the operating room. Patient was given IV sedation from the anesthesia team. Anesthetic drops were placed in the operative eye. The left eye was prepped and draped in usual sterile ophthalmic fashion. A lid speculum was placed in the operative eye and the microscope was swung into position. A paracentesis incision was made inferiorly in the left eye. Lidocaine was injected intracameral into the anterior chamber. Viscoelastic was injected into anterior chamber and a clear corneal incision was made temporally. A cystitome and Utrata forceps were used create a continuous curvilinear caps ulorrhexis. Viscoelastic and a blunt probe were used to break synechaei/ Mallyugan ring was then placed to open the pupil. Hydrodissection cannula was then used to hydrate and rotate the lens. Phaco was then carried out to divide the lens into 4 quadrants. Quadrants were removed using phaco emulsification. The irrigation-aspiration handpiece was then used to remove the cortex. Provisc was then used to inflate the capsular bag and the intraocular lens was placed in the bag without incident. The Malyugan ring was then removed. The irrigation- aspiration handpiece was then used to remove the remaining viscoelastic. The wounds were checked and found to be watertight. The pressure was checked and found to be favorable. The speculum was then removed. One drop of pred acetate and one drop of brimonidine and one drop of ciprofloxacin were placed in the operative eye. A shield was taped over the eye and the patient was taken recovery in stable condition. Patient was given instructions for post op care. Plan - Discharge Summary Discharge Rx Participant: No New Discharge Prescriptions: No Action Levothyroxine Sodium 200 mcg PO QAM Lisinopril [Zestril] 2.5 mg PO QAM metFORMIN HCL 250 mg PO QAM Omeprazole 20 mg PO QAM Albuterol Inhaler [Ventolin Hfa Inhaler] 1 puff INHALATION RT-QID PRN PRN Reason: Shortness Of Breath Or Wheezing Discharge Medication List Albuterol Inhaler [Ventolin Hfa Inhaler] 1 puff INHALATION RT-QID PRN 02/06/19 [History] Levothyroxine Sodium 200 mcg PO QAM 02/06/19 [History] Lisinopril [Zestril] 2.5 mg PO QAM 02/06/19 [History] Omeprazole 20 mg PO QAM 02/06/19 [History] metFORMIN HCL 250 mg PO QAM 02/06/19 [History] Discharge Disposition: HOME SELF-CARE
[2019-05-16 09:08] VITALS: BP 132/77; PULSE 78
== END 2019-05-16 09:35 | disposition home or self-care (01) ==
LOC: OR 06:14
PROVIDERS: ATTEND Ophthalmology
DX: H25.12 Age-related nuclear cataract, left eye (principal); H21.542 Posterior synechiae (iris), left eye; H40.119 Primary open-angle glaucoma, unspecified eye; I10 Essential (primary) hypertension; E11.36 Type 2 diabetes mellitus with diabetic cataract; J44.9 Chronic obstructive pulmonary disease, unspecified; Z90.710 Acquired absence of both cervix and uterus; E07.9 Disorder of thyroid, unspecified; Z79.84 Long term (current) use of oral hypoglycemic drugs; Z79.890 Hormone replacement therapy; Z79.899 Other long term (current) drug therapy; Z88.1 Allergy status to other antibiotic agents; Z88.5 Allergy status to narcotic agent
CPT/HCPCS: 66984; V2632; J2250; J0171; J2001; J3010

== ENCOUNTER 2019-06-23 22:24 | Inpatient (IN) | payer OTHER ==
[2019-06-23] MEDS ORDERED: MORPHINE SULFATE 4 MG/ML SYRINGE IVP STA (22:32)
[2019-06-23] MEDS ORDERED: ONDANSETRON 4 MG/2 ML VIAL IVP STA (22:32)
--- NOTE | 2019-06-23 22:33 | ED ---
Chest Pain HPI - General Stated Complaint: STEMI - History of Present Illness Initial Comments: Muna 63-year-old female with a history of hypertension diabetes and a former smoker. Patient is brought to the ER today via EMS for evaluation of chest pain and possible WA. Patient reports around 2 PM she began having some vague chest pain progressively worsened throughout the evening, tonight the pain became unbearable which prompted her call EMS. Upon their arrival to 12-lead EKG was indicative of an inferior wall WA. Patient was given aspirin she was noted to be hypotensive and given a single dose of sublingual nitroglycerin which improved her pain minimally in route to the hospital. 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 - Related Data Home Medications Medication Instructions Recorded Confirmed Albuterol Inhaler [Ventolin Hfa 1 puff INHALATION RT-QID PRN 02/06/19 06/23/19 Inhaler] Levothyroxine Sodium 200 mcg PO DAILY 02/06/19 06/23/19 Lisinopril [Zestril] 2.5 mg PO DAILY 02/06/19 06/23/19 Omeprazole 20 mg PO DAILY 02/06/19 06/23/19 metFORMIN HCL 250 mg PO DAILY 02/06/19 06/23/19 Allergies Allergy/AdvReac Type Severity Reaction Status Date / Time codeine Allergy Rash/Hives Verified 06/23/19 22:38 doxycycline [From Vibramycin] Allergy Rash/Hives Verified 06/23/19 22:38 Review of Systems ROS Statement: Those systems with pertinent positive or pertinent negative responses have been documented in the HPI. ROS Other: All systems not noted in ROS Statement are negative. EKG Findings - EKG Comments: EKG Findings:: EMS EKG was obtained at 2205, there is sinus bradycardia with a rate of 49, normal axis, normal intervals, TX 160, QTC 429, there is ST elevations of 3-4 mm in leads 23 and aVF, there is reciprocal depressions in aVR aVL the one in V2. This is consistent with an inferior wall WA. Repeat EKG upon arrival, , rate is 59 rhythm is sinus bradycardia there is normal axis, there are normal intervals, TX 134, care is 94, QTC is 411, there continues to be ST elevations in leads 23 and aVF with reciprocal depressions in aVL and V1 and V2. This consistent with an acute inferior wall WA. Past Medical History Past Medical History: Atrial Flutter, Asthma, COPD, Diabetes Mellitus, Eye Disorder, GERD/Reflux, Hypertension, Osteoarthritis (OA), Pneumonia, Thyroid Disorder Additional Past Medical History / Comment(s): had pneumonia in February, cataracts, not aware of any arrythmia problem-no tx. for History of Any Multi-Drug Resistant Organisms: None Reported Past Surgical History: Heart Catheterization, Hysterectomy, Joint Replacement Additional Past Surgical History / Comment(s): CYST REMOVAL FROM HEAD AND SHOULDER, right hip replaced February 2019 Past Anesthesia/Blood Transfusion Reactions: Motion Sickness, Postoperative Nausea & Vomiting (PONV) Smoking Status: Former smoker - Past Family History Father Family Medical History: Deep Vein Thrombosis (DVT) General Exam - General Exam Comments Initial Comments: Physical Exam GENERAL: Appears uncomfortable HENT: Normocephalic, Atraumatic. EYES: PERRL, EOMI PULMONARY: Unlabored respirations. CARDIOVASCULAR: Bradycardic, regular Warm and well perfused extremities Radial, DP/PT pulses present equal bilaterally ABDOMEN: Non-distended No pulsatile mass SKIN: Skin is clear with no lesions or rashes and otherwise unremarkable. : Deferred NEUROLOGIC: Patient is alert and oriented x3. Moving all extremities spontaneously MUSCULOSKELETAL: Normal extremities with adequate strength and full range of motion. No lower extremity swelling or edema. No calf tenderness. PSYCHIATRIC: Appropriate situational anxiety Course Vital Signs 06/23/19 06/23/19 06/23/19 22:25 22:35 22:41 Temperature 96.8 F L Pulse Rate 55 L 56 L 51 L Respiratory 20 20 Rate Blood Pressure 138/84 124/84 131/79 O2 Sat by Pulse 97 98 97 Oximetry Chest Pain MDM - Core Measures AMI Core Measures Followed: Yes - Differential Diagnosis AMI - MDM Prehospital EKG was reviewed, consistent with STEMI 2217 Patient care was discussed with Dr. Barbosa, patient has not arrived in the emergency department as of yet however based on EKG we will activate the cath team for STEMI The patient was immediately placed in a monitored bed, and IV was placed, oxygen was administered, and the EKG was evaluated. The ECG revealed an acute ST elevation myocardial infarction. A code STEMI was called by her to arrival time and the chemistry laboratory technician was activated. Defibrillator pads were placed on the patient. The patient was given Aspirin. After a chest x-ray was performed which showed no mediastinal widening IV heparin was given based on the patients weight. The patient had normal hemodynamics during the ED course and was taken directly to the cardiac chemistry laboratory technician. Patient care was discussed with patient's primary care physician Dr. Oliva who is very familiar with the patient. Aware of plan for admission to chemistry laboratory technician and then hospital stay. On the emergency department patient received morphine, Zofran, heparin Patient ran bradycardic but hemodynamically stable and was transferred to the Technologies Division Chair for intervention Critical Care Time Critical Care Time: Yes Total Critical Care Time: 30 Critical Care Time: Critical Care Time Critical care time was exclusive of separately billable procedures and treating other patients and teaching time. Critical care was necessary to treat or prevent imminent or life-threatening deterioration. Given the critical condition in which the patient arrived, the patient was immediately assessed by myself and the nurse, and cardiac monitoring initiated due to the potential for rapid decompensation of the patient's clinical condition. During the course of the patients stay, I spent a considerable amount of time at the bedside performing serial re-evaluations of the patient's hemodynamic and clinical status because of the recognized potential threat to life or limb in this condition. I then had a chance to review not only all of the available current laboratory and radiographic studies obtained today, but I also reviewed old records available to me at the time. Additionally, any ancillary information available including qa auditor records were reviewed. Sequential vital signs were obtained. Disposition Clinical Impression: ST elevation myocardial infarction (STEMI) Disposition: ADMITTED IP TO THIS HOSP Condition: Serious Is patient prescribed a controlled substance at d/c from ED?: No
[2019-06-23] MEDS ORDERED: NALOXONE 0.4 MG/ML 1 ML VIAL IV PRN (22:34)
[2019-06-23] MEDS ORDERED: SODIUM CHLORIDE 0.9% 500 ML 500 ML IV STA (22:34)
[2019-06-23] MEDS ORDERED: HEPARIN SODIUM,PORCINE 5,000 UNIT/ML 1 ML VIAL IV STA (22:34)
[2019-06-23] MEDS ORDERED: ATORVASTATIN 80 MG TAB PO STA (22:43)
--- NOTE | 2019-06-23 22:45 | XR ---
EXAMINATION TYPE: XR chest 1V DATE OF EXAM: 06/23/2019 COMPARISON: NONE HISTORY: Chest pain TECHNIQUE: Single frontal view of the chest is obtained. FINDINGS: There is no heart failure nor confluent pneumonic infiltrate. Costophrenic angles are leti r. There are chest leads. There is slight coarsening of the interstitial markings. IMPRESSION: No heart failure. Mild pulmonary fibrosis.
[2019-06-23] MEDS ORDERED: IV FLUID CONTINUATION 400 ML IV ONE (22:55)
[2019-06-23] MEDS ORDERED: LIDOCAINE 1% INJ 10MG/ML (20 ML MDV) ONE (22:55)
[2019-06-23] MEDS ORDERED: VERAPAMIL 2.5 MG/ML 2 ML AMP ONE (22:55)
--- NOTE | 2019-06-23 23:00 | P.CRDCN ---
History of Present Illness History of present illness: This is Dr. Barbosa dictating a consult on this patient The patient was interviewed and examined by me IMPRESSION / ASSESSMENT: Acute inferior posterior ME Onset of chest pain and 2 PM this afternoon Progressively worsened Vitals stable heart rate in the 50s and 60s blood pressure stable Borderline diabetes Nonsmoker Family history of CAD and ME PLAN: Aspirin and Lipitor heparin and nitroglycerin and morphine Urgent coronary angiogram and appropriate coronary intervention Atorvastatin 80 mg by mouth daily, dual antiplatelet therapy, beta blockers HPI Patient started experiencing anterior chest discomfort at about 2 PM the soft and when she was shopping She did not want to come to the hospital did not coronary family members did not ask for help Benazepril and became progressively worse started radiating through to the back and both shoulders she became more and more uncomfortable She was nauseous No dizziness, no loss of consciousness She called her son and then arrived in the hospital around 10 PM by EMS She is continued to have chest discomfort here, looked uncomfortable and in pain 12-lead ECG showed inferior wall ST elevation, leads to 3 aVF with Q-wave in lead [address] depression with T-wave inversions V1 and V2 ROS: No fever chills or rigors, no cough, phlegm or expectoration, no nausea, vomiting or diarrhea, no hematuria, dysuria, no musculoskeletal complaints, no strokes or seizures, no skin lesions. EXAMINATION: Afebrile 96.8F pulse rate in the 50s and 60s, blood pressure 138/84 mmHg Sounds are clear no rhonchi no crackles Normal heart sounds normal S1 normal S2 no murmurs no gallops no rub No JVD Abdomen is soft nontender Extremities are warm no edema pulses are well palpable both dorsalis pedis pulses are well palpable REVIEW OF LABS, ECG & MEDICAL DATA ST elevation inferior leads, ST depression with T-wave inversions V1 and V2 Past Medical History Past Medical History: Atrial Flutter, Asthma, COPD, Diabetes Mellitus, Eye Disorder, GERD/Reflux, Hypertension, Osteoarthritis (OA), Pneumonia, Thyroid Disorder Additional Past Medical History / Comment(s): had pneumonia in February, cataracts, not aware of any arrythmia problem-no tx. for History of Any Multi-Drug Resistant Organisms: None Reported Past Surgical History: Heart Catheterization, Hysterectomy, Joint Replacement Additional Past Surgical History / Comment(s): CYST REMOVAL FROM HEAD AND SHOULDER, right hip replaced February 2019 Past Anesthesia/Blood Transfusion Reactions: Motion Sickness, Postoperative Nausea & Vomiting (PONV) Smoking Status: Former smoker - Past Family History Father Family Medical History: Deep Vein Thrombosis (DVT) Medications and Allergies Home Medications Medication Instructions Recorded Confirmed Type Albuterol Inhaler [Ventolin Hfa 1 puff INHALATION RT-QID PRN 02/06/19 06/23/19 History Inhaler] Levothyroxine Sodium 200 mcg PO DAILY 02/06/19 06/23/19 History Lisinopril [Zestril] 2.5 mg PO DAILY 02/06/19 06/23/19 History Omeprazole 20 mg PO DAILY 02/06/19 06/23/19 History metFORMIN HCL 250 mg PO DAILY 02/06/19 06/23/19 History Allergies Allergy/AdvReac Type Severity Reaction Status Date / Time codeine Allergy Rash/Hives Verified 06/23/19 22:38 doxycycline [From Vibramycin] Allergy Rash/Hives Verified 06/23/19 22:38 Physical Exam Vitals: Vital Signs Temp Pulse Resp BP Pulse Ox 06/23/19 22:41 51 L 20 131/79 97 06/23/19 22:35 56 L 124/84 98 06/23/19 22:25 96.8 F L 55 L 20 138/84 97 Intake and Output 06/23/19 06/23/19 06/24/19 14:59 22:59 06:59 Other: Weight 86.636 kg Results Current Medications Generic Name Dose Route Start Last Admin Trade Name Freq PRN Reason Stop Dose Admin Sodium Chloride 500 mls @ 999 mls/hr 06/23/19 22:34 06/23/19 22:39 Saline 0.9% IV 06/23/19 23:04 999 mls/hr .Q31M STA Administration Naloxone HCl 0.2 mg 06/23/19 22:34 Narcan IV Q2M PRN Opioid Reversal Intake and Output 06/23/19 06/23/19 06/24/19 14:59 22:59 06:59 Other: Weight 86.636 kg Patient Weight 06/24/19 06:59 Weight 86.636 kg
[2019-06-23] MEDS ORDERED: LIDOCAINE 1% INJ 10MG/ML (20 ML MDV) SQ ONE (23:02)
[2019-06-23 23:04] LABS: Albumin 4.1 g/dL (3.5-5.0); Potassium 4.1 mmol/L (3.5-5.1); Total Bilirubin 0.2 mg/dL (0.2-1.3); Total Protein 7.3 g/dL (6.3-8.2)
[2019-06-23] MEDS ORDERED: VERAPAMIL SYRINGE (5 MG/10 ML) INTRAARTER ONE (23:04)
[2019-06-23] MEDS ORDERED: BIVALIRUDIN BOLUS 250 MG/50 ML IV ONE (23:15)
[2019-06-23] MEDS ORDERED: TICAGRELOR 90 MG TAB ONE (23:16)
[2019-06-23] MEDS ORDERED: BIVALIRUDIN 250 MG in SODIUM CHLORIDE 0.9% 50 ML IV ONE (23:16)
[2019-06-23] MEDS ORDERED: TICAGRELOR 90 MG TAB PO ONE (23:17)
[2019-06-23 23:19] LABS: Anisocytosis Slight; Basophils # (A) 0.2 k/uL (0-0.2); Basophils % (A) 2 %; Eosinophils # (A) 0.2 k/uL (0-0.7); Eosinophils % (A) 1 %; HCT 41.5 % (34.0-46.0); HGB 13.4 gm/dL (11.4-16.0); Hypochromasia Slight; Lymphocytes # (A) 5.4 k/uL (1.0-4.8); Lymphocytes % (A) 48 %; MCH 28.2 pg (25.0-35.0); MCHC 32.4 g/dL (31.0-37.0); MCV 87.3 fL (80.0-100.0); Mean Platelet Volume 7.6; Monocytes # (A) 0.6 k/uL (0-1.0); Monocytes % (A) 5 %; Neutrophils # (A) 4.6 k/uL (1.3-7.7); Neutrophils % (A) 41 %; Platelet Count 258 k/uL (150-450); RBC 4.75 m/uL (3.80-5.40); RDW 16.2 % (11.5-15.5); WBC 11.1 k/uL (3.8-10.6)
[2019-06-23] MEDS ORDERED: NITROGLYCERIN 1000MCG/10ML SYRINGE INTRACORON ONE (23:20)
[2019-06-23 23:21] LABS: INR 0.9 (<1.2); Partial Thromboplastin Time 25.5 sec (22.0-30.0); Prothrombin Time 9.5 sec (9.0-12.0)
[2019-06-23] MEDS ORDERED: IOPAMIDOL-370 125ML BTL INJ ONE (23:22)
[2019-06-23] MEDS ORDERED: SODIUM CHLORIDE 0.9% 1,000 ML IV ONE (23:40)
[2019-06-23] MEDS ORDERED: IOPAMIDOL-370 100ML BTL INJ ONE (23:40)
[2019-06-23] MEDS ORDERED: SODIUM CHLORIDE 0.9% 1,000 ML IV SCH (23:45)
[2019-06-23] MEDS ORDERED: ATROPINE SULFATE 0.1 MG/ML 10ML SYRINGE IV PRN (23:52)
[2019-06-23] MEDS ORDERED: ZOLPIDEM 5 MG TAB PO PRN (23:52)
[2019-06-23] MEDS ORDERED: RX INFO: IV CONTRAST WAS GIVEN 1 EACH MISC MISCELLANE PRN (23:52)
[2019-06-23] MEDS ORDERED: NITROGLYCERIN SL TABS 0.4 MG TAB SUBLINGUAL PRN (23:52)
[2019-06-23] MEDS ORDERED: MAG HYDROX/AL HYDROX/SIMETH 30 ML CUP PO PRN (23:52)
[2019-06-24 00:07] LABS: Glucose,Whole Blood 152 mg/dL (75-99)
[2019-06-24 00:28] LABS: Large Platelets Present
[2019-06-24 00:51] VITALS: BMI 39.2
[2019-06-24] MEDS: ACETAMINOPHEN TAB 325 MG TAB PO PRN (01:27)
--- NOTE | 2019-06-24 03:59 | CC ---
CARDIAC CATHETERIZATION REPORT Mrs. Barillas is a 63-year-old female with no prior history of coronary artery disease who presented with symptoms of chest discomfort associated with ST-segment elevation and ST depression in the anterior precordial leads. In view of that, and after evaluation by Dr. Barbosa, recommendation made regarding cardiac catheterization. The procedure as well as risks and complications were discussed with the patient who is in full understanding and agreement. DESCRIPTION OF PROCEDURE: Patient was brought to the laboratory development technician after receiving fentanyl and Benadryl and achieving moderate conscious sedated state. Using Xylocaine anesthesia and Seldinger technique, a 6-Guyanese sheath was introduced in the right radial artery. Selective right and left coronary angiography was performed using 6-Guyanese FR4 guiding catheter and 6-Guyanese FL 3.5 guiding catheter. Images of the coronary arteries were obtained. Angioplasty and stenting of the left circumflex were performed. Following that, 5-Guyanese tight pigtail catheter was introduced in the left ventricle and a 30-degree LACKEY view of the left ventricle was obtained. Following that, catheter and sheath were removed. Hemostasis was obtained with deployment of a TR band. There was no immediate complication. Patient is returned to her room in stable condition. Of note, the patient received Angiomax per protocol as well as intra-arterial verapamil and oral loading dose of Brilinta. FINDINGS: LEFT MAIN: This is a large-sized vessel, bifurcating into left circumflex, left anterior descending artery. Left main coronary artery has no evidence of high-grade stenosis. LEFT ANTERIOR DESCENDING ARTERY: This is a large-sized vessel reaching toward the apex, tapers down distally giving rise to a large diagonal branch in the proximal segment. At the takeoff of the diagonal branch, there is a 90% stenosis involving the takeoff of the diagonal branch. The rest of the vessel has no high-grade stenosis. LEFT CIRCUMFLEX: This is a nondominant vessel, that is totally occluded proximally. RIGHT CORONARY ARTERY: This is a large dominant vessel bifurcating PDA segment branches. The right coronary artery has a 20% to 30% plaque in the proximal mid segment. The rest of the vessel has no high-grade stenosis. LEFT VENTRICULOGRAM: Left ventriculogram is performed in 30-degree LACKEY view and revealed a mid anterior wall hypokinesis. Ejection fraction is estimated 50%. There was no significant mitral regurgitation. HEMODYNAMICS: There was no gradient across the aortic valve. The left ventricle end-diastolic pressure was 20 mmHg. CONCLUSION: 1. Acutely occluded proximal left circumflex. 2. Critical stenosis involving the proximal LAD at the takeoff of the first diagonal branch. 3. Mild disease in the right coronary artery. RECOMMENDATIONS: In view of findings and anatomy, I recommend proceeding with angioplasty and stenting of the left circumflex. The procedure as well as risks and complications were discussed with the patient who is in full understanding and agreement. MMZENAIDA / VIRGILN: [id number] /
--- NOTE | 2019-06-24 03:59 | PTCA ---
PERCUTANEOUSTRANS CORORONARY ANGIOGRAPHY Mrs. Barillas is a 63-year-old female with no prior history of cardiac disease who presented with an acute myocardial infarction, underwent coronary angiography, was found to have occluded proximal left circumflex. In view of that, recommendation made regarding angioplasty and stenting. The procedures as well as risks and complications were discussed with the patient who is in full understanding and agreement. DESCRIPTION OF PROCEDURE: Using the 6-Bruneian FL 3.5 guiding catheter after cannulating the left main, a 0.014 balanced medium weight J-wire was advanced across the lesion, positioned distally. Subsequently, 2.5 x 12 mm Euphora balloon was advanced and one inflation at 8 atmospheres was done. Following that, the balloon was removed and a 2.5 x 15 mm Xience Stefani stent was advanced, deployed and post dilated at 16 atmospheres. After the last inflation, after appropriate wait, the balloon and the guidewire were withdrawn back in the guiding catheter. Images were obtained and repeated. Those images reveal stable successful stenting. At that point, the balloon and the guidewire and the guiding catheter were removed and an left ventriculogram was performed using a tight pigtail catheter. Following that, catheter and sheath were removed. Hemostasis was obtained with deployment of a TR band. There was no immediate complication. Patient is returned to her room in stable condition. Of note, the patient received Angiomax per protocol as well as oral loading dose of Brilinta. Her chest discomfort resolved as well as EKG changes by the end of the procedure. RESULTS: Successful stenting of the proximal left circumflex with reduction of stenosis from 100% to 0%. There was mild disease involving the obtuse marginal branch of 30-40 percent distal to the stented segment. RECOMMENDATION: Patient will be continued on aspirin, Brilinta, beta blockers and statin. She will be evaluated regarding the need to undergo revascularization of her LAD. Those findings and recommendation were discussed with the patient and her family who are in full understanding and agreement. Duration of procedure: 36 minutes. MMODL / IJN: [id number] /
[2019-06-24 05:19] LABS: African American GFR (CKD) >90 (>60 ml/min/1.73 sqM); Anion Gap 5 mmol/L; Blood Urea Nitrogen 15 mg/dL (7-17); Carbon Dioxide 23 mmol/L (22-30); Chloride 111 mmol/L (98-107); Glucose 93 mg/dL (74-99); Potassium 4.4 mmol/L (3.5-5.1); Sodium 139 mmol/L (137-145)
[2019-06-24 05:20] LABS: Cholesterol 211 mg/dL (<200); HDL Cholesterol 40 mg/dL (40-60); LDL Cholesterol,Calculated 145 mg/dL (0-99); Triglycerides 131 mg/dL (<150)
[2019-06-24] MEDS: LEVOTHYROXINE 100 MCG TAB PO SCH (06:17)
[2019-06-24 07:05] LABS: Glucose,Whole Blood 99 mg/dL (75-99)
[2019-06-24] MEDS ORDERED: LISINOPRIL 5 MG TAB PO SCH (09:00)
[2019-06-24] MEDS ORDERED: ASPIRIN 81 MG PO SCH (09:00)
[2019-06-24] MEDS: ASPIRIN 81 MG PO SCH (09:30)
[2019-06-24] MEDS: ATORVASTATIN 80 MG TAB PO SCH ×2 (09:30)
[2019-06-24] MEDS: TICAGRELOR 90 MG TAB PO SCH ×2 (09:30→22:01)
[2019-06-24] MEDS: PANTOPRAZOLE 40 MG TABLET PO SCH (09:31)
[2019-06-24] MEDS: METOPROLOL TARTRATE 25 MG TAB PO SCH ×2 (09:31→10:35)
[2019-06-24 12:30] LABS: Glucose,Whole Blood 95 mg/dL (75-99)
--- NOTE | 2019-06-24 13:42 | P.PN ---
<Elaina Bee - Last Filed: 06/24/19 13:42> Subjective This is Elaina Bee PA-C dictating a progress note on this patient The patient was interviewed and examined by me as well as by Dr. Barbosa Case discussed with Dr. Barbosa and he agrees with the plan of care IMPRESSION / ASSESSMENT: Acute ST elevation MT status post stenting to the proximal left circumflex CAD, Coronary angiography showed critical stenosis of the proximal LAD Hypertension, has been hypotensive Diabetes Former smoker COPD PLAN: Decrease metoprolol to 12.5 twice a day to avoid hypotension Hold lisinopril Will discuss management of LAD stenosis with Dr. Becerril Dual antiplatelet therapy Continue statins Obtain echocardiogram HPI/interval history Patient is a 63-year-old female with a past medical history of COPD, hypertension, diabetes who presented with complaints of chest discomfort and was found to have an ST elevation MT. She underwent coronary angiography which showed an acutely occluded proximal left circumflex and critical stenosis involving the proximal LAD and subsequently underwent stenting of the left circumflex. She was admitted to the ICU. Has been in sinus rhythm overnight. Has been slightly hypotensive. Patient seen and examined resting in bed. States she feels better. Denies any chest pain, shortness of breath or dizziness. Has been getting up and using the bathroom without any difficulties. EXAMINATION She is afebrile, pulse 60, respirations 20, blood pressure 102/63, oxygen saturation 95% on 2 L nasal cannula Patient seen and examined resting comfortably in bed, in no acute distress Lungs rhonchorous bilaterally Heart is regular, normal S1 and S2, no murmurs noted No lower extremity edema No elevated JVD REVIEW OF LABS, ECG Potassium 4.4, BUN 15, creatinine 0.7 2 LDL 145 Objective - Vital Signs Vital signs: Vital Signs Temp 97.7 F 06/24/19 12:00 Pulse 54 L 06/24/19 12:00 Resp 13 06/24/19 12:00 BP 109/76 06/24/19 12:00 Pulse Ox 96 06/24/19 12:00 Intake & Output 06/23/19 06/24/19 06/24/19 18:59 06:59 18:59 Intake Total 1414 450 Output Total 500 275 Balance 914 175 Weight 88.2 kg 88.2 kg Intake: IV 1174 200 Sodium Chloride 0.9% 1, 800 200 000 ml @ 100 mls/hr IV . Q10H [facility] Rx#:[id number] Oral 240 250 Output: Urine 500 275 Other: Voiding Method Bedside Commode Bedside Commode # Voids 0 - Labs CBC & Chem 7: 06/23/19 22:33 06/24/19 04:36 Labs: Abnormal Lab Results - Last 24 Hours (Table) 06/23/19 06/23/19 06/23/19 Range/Units 22:33 22:33 23:56 WBC 11.1 H (3.8-10.6) k/uL RDW 16.2 H (11.5-15.5) % Lymphocytes # 5.4 H (1.0-4.8) k/uL Chloride 109 H (98-107) mmol/L Glucose 146 H (74-99) mg/dL POC Glucose (mg/dL) 152 H (75-99) mg/dL Alkaline Phosphatase 174 H (38-126) U/L Troponin I (0.000-0.034) ng/mL Cholesterol (<200) mg/dL LDL Cholesterol, Calc (0-99) mg/dL 06/24/19 06/24/19 06/24/19 Range/Units 04:36 04:36 04:42 WBC (3.8-10.6) k/uL RDW (11.5-15.5) % Lymphocytes # (1.0-4.8) k/uL Chloride 111 H (98-107) mmol/L Glucose (74-99) mg/dL POC Glucose (mg/dL) (75-99) mg/dL Alkaline Phosphatase (38-126) U/L Troponin I 1.810 H* (0.000-0.034) ng/mL Cholesterol 211 H (<200) mg/dL LDL Cholesterol, Calc 145 H (0-99) mg/dL 06/24/19 Range/Units 10:49 WBC (3.8-10.6) k/uL RDW (11.5-15.5) % Lymphocytes # (1.0-4.8) k/uL Chloride (98-107) mmol/L Glucose (74-99) mg/dL POC Glucose (mg/dL) (75-99) mg/dL Alkaline Phosphatase (38-126) U/L Troponin I 2.180 H* (0.000-0.034) ng/mL Cholesterol (<200) mg/dL LDL Cholesterol, Calc (0-99) mg/dL <Erick Barbosa - Last Filed: 06/24/19 13:58> Subjective Patient is doing well. She has no symptoms at this time and looks very comfortable Peak troponin 2.18 Blood pressure 109/76. His mercury pulse rate in the 50s Stenting to the left circumflex yesterday. She had an inferior posterior MT She has an ostial diagonal stenosis also and will be addressed prior to discharge within the next 48-72 hours Continue dual antiplatelet therapy and low-dose ADILENE inhibitor as Tomorrow I'll plan to increase the dose of metoprolol tartrate, if past Assessment of LV function Objective - Vital Signs Vital signs: Vital Signs Temp 97.7 F 06/24/19 12:00 Pulse 54 L 06/24/19 12:00 Resp 13 06/24/19 12:00 BP 109/76 06/24/19 12:00 Pulse Ox 96 06/24/19 12:00 Intake & Output 06/23/19 06/24/19 06/24/19 18:59 06:59 18:59 Intake Total 1414 450 Output Total 500 275 Balance 914 175 Weight 88.2 kg 88.2 kg Intake: IV 1174 200 Sodium Chloride 0.9% 1, 800 200 000 ml @ 100 mls/hr IV . Q10H [facility] Rx#:[id number] Oral 240 250 Output: Urine 500 275 Other: Voiding Method Bedside Commode Bedside Commode # Voids 0 - Labs CBC & Chem 7: 06/23/19 22:33 06/24/19 04:36 Labs: Abnormal Lab Results - Last 24 Hours (Table) 06/23/19 06/23/19 06/23/19 Range/Units 22:33 22:33 23:56 WBC 11.1 H (3.8-10.6) k/uL RDW 16.2 H (11.5-15.5) % Lymphocytes # 5.4 H (1.0-4.8) k/uL Chloride 109 H (98-107) mmol/L Glucose 146 H (74-99) mg/dL POC Glucose (mg/dL) 152 H (75-99) mg/dL Alkaline Phosphatase 174 H (38-126) U/L Troponin I (0.000-0.034) ng/mL Cholesterol (<200) mg/dL LDL Cholesterol, Calc (0-99) mg/dL 06/24/19 06/24/19 06/24/19 Range/Units 04:36 04:36 04:42 WBC (3.8-10.6) k/uL RDW (11.5-15.5) % Lymphocytes # (1.0-4.8) k/uL Chloride 111 H (98-107) mmol/L Glucose (74-99) mg/dL POC Glucose (mg/dL) (75-99) mg/dL Alkaline Phosphatase (38-126) U/L Troponin I 1.810 H* (0.000-0.034) ng/mL Cholesterol 211 H (<200) mg/dL LDL Cholesterol, Calc 145 H (0-99) mg/dL 06/24/19 Range/Units 10:49 WBC (3.8-10.6) k/uL RDW (11.5-15.5) % Lymphocytes # (1.0-4.8) k/uL Chloride (98-107) mmol/L Glucose (74-99) mg/dL POC Glucose (mg/dL) (75-99) mg/dL Alkaline Phosphatase (38-126) U/L Troponin I 2.180 H* (0.000-0.034) ng/mL Cholesterol (<200) mg/dL LDL Cholesterol, Calc (0-99) mg/dL
--- NOTE | 2019-06-24 15:31 | ECHOF ---
Referral Reason:mi MEASUREMENTS -------- HEIGHT: 149.9 cm WEIGHT: 88.0 kg BP: 100/66 IVSd: 1.3 cm (0.6 - 1.1) LVIDd: 3.7 cm (3.9 - 5.3) LVPWd: 1.3 cm (0.6 - 1.1) IVSs: 1.7 cm LVIDs: 2.5 cm LVPWs: 1.7 cm LA Diam: 3.0 cm (2.7 - 3.8) RVIDd: 3.1 cm (< 3.3) LAESV Index (A-L): 21.25 ml/m Ao Diam: 2.9 cm (2.0 - 3.7) AV Cusp: 1.7 cm (1.5 - 2.6) EPSS: 0.5 cm MV E Blair: 0.81 m/s MV DecT: 162 ms MV A Blair: 0.92 m/s MV E/A Ratio: 0.89 RAP: 15.00 mmHg RVSP: 34.03 mmHg MV EF SLOPE: 89.19 mm/s (70 - 150) MV EXCURSION: 14.32 mm (> 18.000) TAPSE: 19.54 mm FINDINGS -------- Sinus rhythm. This was a technically adequate study. The left ventricular size is normal. There is mild concentric left ventricular hypertrophy. Overa ll left ventricular systolic function is mildly impaired with, an EF between 45 - 50 %. POSTEROLATE RAL HYPOKINESIS CONCLUSIONS -------- 1. Sinus rhythm. 2. This was a technically adequate study. 3. The left ventricular size is normal. 4. There is mild concentric left ventricular hypertrophy. 5. Overall left ventricular systolic function is mildly impaired with, an EF between 45 - 50 %. 6. Apical lateral LV wall motion is hypokinetic. [employer]: Christel [address]
[2019-06-24] MEDS: LISINOPRIL 5 MG TAB PO SCH (15:46)
[2019-06-24 18:47] LABS: Glucose,Whole Blood 115 mg/dL (75-99)
[2019-06-24 21:24] LABS: Glucose,Whole Blood 98 mg/dL (75-99)
[2019-06-24] MEDS: METOPROLOL TARTRATE 12.5 MG TAB PO SCH (22:01)
--- NOTE | 2019-06-24 22:20 | HP ---
HISTORY AND PHYSICAL SUBJECTIVE: 63-year-old female with history of hypertension, diabetes, former smoker, came to the ER for possible chest pain and OH. She was seen in the assistant laboratory director and had angioplasty of the circumflex artery on the right side. She is currently having no chest pain or shortness of breath or lightheaded, dizziness or syncope. MEDICATIONS: At home include: Zestril 2.5 mg daily, metformin 250 daily, omeprazole 20 daily, Zestril 2.5 daily, levothyroxine 200 daily, albuterol inhaler 2 puffs q.4 hours p.r.n. ALLERGIES: TO CODEINE, DOXYCYCLINE. REVIEW OF SYMPTOMS: A 14-point review of systems negative except for mentioned in HPI. EKG sinus bradycardia, ST-elevation. PAST MEDICAL HISTORY: Atrial flutter, asthma, COPD, diabetes mellitus, eye disorder, GERD, hypertension, osteoarthritis, hypothyroidism, pneumonia. SURGICAL HISTORY: Heart catheterization, hysterectomy, joint replacement, history of motion sickness, postoperative nausea, vomiting, PHYSICAL EXAMINATION: She is obese. BMI is over 40. Cardiovascular S1-S2. Lungs clear. GI soft. Hematology negative Homans. Psych fair mood and affect. GI soft, nontender. CARDIOVASCULAR: S1, S2. Lungs transmitted upper sounds. Blood pressure 120s to 130s over 70s to 80s, O2 97 to 99, pulse rate 51-56, respiratory rate 18 to 20. EKG consistent with a STEMI. ASSESSMENT: 1. Status post PTCA for ST elevation myocardial infarction. 2. Diabetes mellitus. 3. Hypertension. 4. Obesity. 5. Dyslipidemia. PLAN: Continue current treatment. Risk factor modification. Possible discharge home in the next 24-48 hours, status post stent placement. MMODL / IJN: [id number] /
[2019-06-25 07:09] LABS: Glucose,Whole Blood 89 mg/dL (75-99)
[2019-06-25] MEDS ORDERED: ASPIRIN 325 MG TAB PO STA (07:42)
[2019-06-25] MEDS ORDERED: ALPRAZolam 0.5 MG TAB PO PRN (07:42)
[2019-06-25] MEDS ORDERED: ATORVASTATIN 80 MG TAB PO STA (07:42)
[2019-06-25] MEDS ORDERED: NITROGLYCERIN SL TABS 0.4 MG TAB SUBLINGUAL PRN (07:42)
[2019-06-25] MEDS ORDERED: ALPRAZolam 0.25 MG TAB PO PRN (07:42)
[2019-06-25] MEDS ORDERED: SODIUM CHLORIDE 0.9% 1,000 ML in EMPTY BAG 1 BAG IV ONE (07:42)
[2019-06-25] MEDS: METOPROLOL TARTRATE 12.5 MG TAB PO SCH (08:16)
[2019-06-25] MEDS: PANTOPRAZOLE 40 MG TABLET PO SCH (08:16)
[2019-06-25] MEDS: ASPIRIN 81 MG PO SCH (08:16)
[2019-06-25] MEDS: LEVOTHYROXINE 100 MCG TAB PO SCH (08:16)
[2019-06-25] MEDS: TICAGRELOR 90 MG TAB PO SCH ×2 (08:17→21:02)
[2019-06-25] MEDS ORDERED: METOPROLOL TARTRATE 12.5 MG TAB PO STA (09:51)
[2019-06-25 11:59] LABS: Glucose,Whole Blood 107 mg/dL (75-99)
[2019-06-25] MEDS: LISINOPRIL 5 MG TAB PO SCH (12:20)
--- NOTE | 2019-06-25 14:01 | P.PN ---
Subjective Progress Note Date: 06/25/19 Principal diagnosis: STEMI This is 63-year-old female admitted with acute STEMI, status post cardiac catheterization with angioplasty and stenting of the circumflex. Cardiac cathet erization reported LAD stenosis, scheduled to return for cardiac cath in a.m. sitting up in chair, telemetry sinus rhythm. Complains of left-sided chest pressure accompanied by shortness of breath radiating to posterior left shoulder blade, intermittent, lasting for a few minutes, then resolves. Objective - Vital Signs Vital signs: Vital Signs Temp 97.7 F 06/25/19 08:00 Pulse 68 06/24/19 23:00 Resp 14 06/25/19 08:00 BP 137/69 06/25/19 08:00 Pulse Ox 96 06/25/19 08:00 Intake & Output 06/24/19 06/25/19 06/25/19 18:59 06:59 18:59 Intake Total 1250 Output Total 775 0 Balance 475 0 Weight 88.2 kg 89.4 kg Intake: IV 200 Sodium Chloride 0.9% 1, 200 000 ml @ 100 mls/hr IV . Q10H [facility] Rx#:[id number] Oral 1050 Output: Urine 775 0 Other: Voiding Method Toilet Toilet Toilet # Voids 1 0 1 - Exam PHYSICAL EXAM: VITAL SIGNS: As above GENERAL: Sitting up in chair, no acute distress HEENT: Conjunctivae normal. eyes normal. Oral mucosa moist NECK: No JVD. No thyroid enlargement. No LNs CARDIOVASCULAR: S1, S2 regular.. No murmur RESPIRATION: Breath sounds diminished in the bases. No rhonchi or crackles. No bronchial breathing. No wheezing. ABDOMEN: Soft, nontender . No guarding. no masses palpable. No ascites, No hepatosplenomegaly.Bowel sounds heard. LEGS: No edema. no swelling PSYCHIATRY: Alert and oriented X3, mood and affect normal. NERVOUS SYSTEM: Cranial N 2-12 grossly normal. Moves all 4 limbs. Diffuse weakness, No focal deficits. Strength and sensation grossly intact.. Skin: no lesions, no rash - Labs CBC & Chem 7: 06/23/19 22:33 06/24/19 04:36 Labs: Abnormal Lab Results - Last 24 Hours (Table) 06/24/19 06/25/19 Range/Units 18:36 11:47 POC Glucose (mg/dL) 115 H 107 H (75-99) mg/dL Assessment and Plan Assessment: -Acute STEMI, status post cardiac catheterization, PTCA with stenting of circumflex, repeat cardiac catheterization pending regarding LAD stenosis -Diabetes mellitus -Hypertension -Morbid obesity, BMI 39.8 -Dyslipidemia -CAD, proximal LAD stenosis -Former nicotine dependence Plan: Continue on current medication regime ,monitoring and symptomatic treatment. Scheduled for cardiac cath, in a.m. Beta anatoly increased as per cardiology. Patient encouraged to notify nursing, doctors when she's having ch est pain/chest pressure-as she had not been. Follow closely with cardiology. The impression and plan of care has been dictated as directed. : I performed a history and examination of this patient, discussed the same with the dictator. I agree with the dictator's note ,documented as a scribe. Any additional findings or plans will be noted.
--- NOTE | 2019-06-25 16:43 | P.PN ---
Subjective This is Elaina Bee PA-C dictating a progress note on this patient The patient was interviewed and examined by me as well as by Dr. Barbosa Case discussed with Dr. Barbosa and he agrees with the plan of care IMPRESSION / ASSESSMENT: Acute ST elevation [place] status post stenting to the proximal left circumflex CAD, Coronary angiography showed critical stenosis of the proximal LAD Recent echo showing LV systolic function mildly impaired, EF 45-50% Hypertension, blood pressure stable Diabetes Former smoker COPD PLAN: Discussed with Dr. Becerril, plan on cath tomorrow to stent the proximal LAD Start lisinopril 5 mg at noon Increase metoprolol to 25 mg by mouth twice a day Repeat BMP tomorrow Dual antiplatelet therapy Continue statins She may go to selective unit HPI/interval history Patient is a 63-year-old female with a past medical history of COPD, hypertension, diabetes who presented with complaints of chest discomfort and was found to have an ST elevation VT. She underwent coronary angiography which showed an acutely occluded proximal left circumflex and critical stenosis involving the proximal LAD and subsequently underwent stenting of the left circumflex. She was admitted to the ICU. Echocardiogram yesterday showed LV systolic function mildly impaired, EF 45-50%, apical lateral hypokinesis. Has been in sinus rhythm overnight. He should seen and examined sitting in her chair. States she has been up and walking around, no dizziness, no chest pain or shortness of breath. EXAMINATION Temperature 97.7F, pulse 60, respirations 14, blood pressure 137/69, oxygen saturation 96% on room air Patient seen and examined resting in her recliner, in no acute distress She has expiratory wheezing bilaterally Heart is regular, normal S1 and S2, no murmurs noted No lower extremity edema No elevated JVD REVIEW OF LABS, ECG No new labs today LDL 145 Objective - Vital Signs Vital signs: Vital Signs Temp 98.0 F 06/25/19 16:00 Pulse 67 06/25/19 16:00 Resp 14 06/25/19 16:00 BP 141/78 06/25/19 16:00 Pulse Ox 96 06/25/19 16:00 Intake & Output 06/24/19 06/25/19 06/25/19 18:59 06:59 18:59 Intake Total 1250 Output Total 775 0 Balance 475 0 Weight 88.2 kg 89.4 kg Intake: IV 200 Sodium Chloride 0.9% 1, 200 000 ml @ 100 mls/hr IV . Q10H [facility] Rx#:[id number] Oral 1050 Output: Urine 775 0 Other: Voiding Method Toilet Toilet Toilet # Voids 1 0 1 - Labs CBC & Chem 7: 06/23/19 22:33 06/24/19 04:36 Labs: Abnormal Lab Results - Last 24 Hours (Table) 06/24/19 06/25/19 Range/Units 18:36 11:47 POC Glucose (mg/dL) 115 H 107 H (75-99) mg/dL
[2019-06-25 17:02] LABS: Glucose,Whole Blood 104 mg/dL (75-99)
[2019-06-25] MEDS ORDERED: ALBUTEROL NEBULIZED 2.5 MG/3 ML INHALATION PRN (17:26)
[2019-06-25] MEDS: METOPROLOL TARTRATE 25 MG TAB PO SCH (21:02)
[2019-06-25 21:17] LABS: Glucose,Whole Blood 91 mg/dL (75-99)
[2019-06-26 05:37] LABS: African American GFR (CKD) >90 (>60 ml/min/1.73 sqM); Anion Gap 5 mmol/L; Blood Urea Nitrogen 14 mg/dL (7-17); Calcium 8.9 mg/dL (8.4-10.2); Carbon Dioxide 23 mmol/L (22-30); Chloride 111 mmol/L (98-107); Glucose 93 mg/dL (74-99); Potassium 4.1 mmol/L (3.5-5.1); Sodium 139 mmol/L (137-145)
[2019-06-26] MEDS: LEVOTHYROXINE 100 MCG TAB PO SCH (05:53)
[2019-06-26] MEDS ORDERED: ASPIRIN 325 MG TAB PO ONE (06:00)
[2019-06-26] MEDS ORDERED: ATORVASTATIN 80 MG TAB PO ONE (06:00)
[2019-06-26] MEDS ORDERED: SODIUM CHLORIDE 0.9% 1,000 ML in EMPTY BAG 1 BAG IV ONE (06:00)
[2019-06-26 06:56] LABS: Glucose,Whole Blood 100 mg/dL (75-99)
[2019-06-26] MEDS: TICAGRELOR 90 MG TAB PO SCH ×2 (07:16→20:23)
[2019-06-26] MEDS ORDERED: LIDOCAINE 1% INJ 10MG/ML (20 ML MDV) SQ ONE (07:43)
[2019-06-26] MEDS ORDERED: fentaNYL (PF) 50 MCG/ML 2 ML AMP IVP ONE (07:43)
[2019-06-26] MEDS ORDERED: VERAPAMIL SYRINGE (5 MG/10 ML) INTRAARTER ONE (07:45)
[2019-06-26] MEDS ORDERED: IV FLUID CONTINUATION 1,000 ML IV ONE (07:45)
[2019-06-26] MEDS ORDERED: BIVALIRUDIN 250 MG in SODIUM CHLORIDE 0.9% 50 ML IV ONE ×2 (07:50→08:39)
[2019-06-26] MEDS ORDERED: BIVALIRUDIN BOLUS 250 MG/50 ML IV ONE (07:50)
[2019-06-26] MEDS ORDERED: IOPAMIDOL-370 125ML BTL INJ ONE (08:09)
[2019-06-26] MEDS ORDERED: IOPAMIDOL-370 100ML BTL INJ ONE ×2 (08:39→09:10)
[2019-06-26] MEDS ORDERED: NITROGLYCERIN 1000MCG/10ML SYRINGE INTRACORON ONE (08:39)
[2019-06-26] MEDS ORDERED: ZOLPIDEM 5 MG TAB PO PRN (09:11)
[2019-06-26] MEDS ORDERED: NITROGLYCERIN SL TABS 0.4 MG TAB SUBLINGUAL PRN (09:11)
[2019-06-26] MEDS ORDERED: ATROPINE SULFATE 0.1 MG/ML 10ML SYRINGE IV PRN (09:11)
[2019-06-26] MEDS: ASPIRIN 81 MG PO SCH (09:11)
[2019-06-26] MEDS ORDERED: MAG HYDROX/AL HYDROX/SIMETH 30 ML CUP PO PRN (09:11)
[2019-06-26] MEDS: ATORVASTATIN 80 MG TAB PO SCH (09:11)
[2019-06-26] MEDS ORDERED: RX INFO: IV CONTRAST WAS GIVEN 1 EACH MISC MISCELLANE PRN (09:11)
[2019-06-26] MEDS ORDERED: SODIUM CHLORIDE 0.9% 1,000 ML IV SCH (09:15)
--- NOTE | 2019-06-26 09:33 | PTCA ---
PERCUTANEOUSTRANS CORORONARY ANGIOGRAPHY Mrs. Barillas is a 63-year-old female who presented with an acute inferoposterior myocardial infarction over the weekend, underwent stenting of her occluded left circumflex. At that time was found to have significant obstructive disease involving the LAD. In view of that, recommendation made regarding coronary angioplasty and stenting. The procedures, risks, and complication were discussed with the patient who is in full understanding and agreement. PROCEDURE: Patient was brought to sleep lab technician in a fasting semi-sedated state after receiving fentanyl and Benadryl and achieving moderate conscious sedated state. Using Xylocaine anesthesia and Seldinger technique, a 6-[place] sheath was introduced in the right radial artery. Selective left coronary angiography performed using 6-[place] FL 3.5 guiding catheter, after cannulating the left main a 0.014 balanced medium weight J-wire was advanced to the LAD and positioned distally. Multiple attempts to advanced a BMW J- wire to the diagonal branch were unsuccessful because of the acute angulation of the diagonal branch. At that time, the BMW J-wire was introduced in the diagonal branch and the Whisper J-wire was introduced in the LAD. Following that, a 2.5 x 12 mm Trek balloon was advanced and inflation in the LAD was performed, maximum 10 atmospheres. Following that, the balloon was removed and a 2.25 x 12 mm Trek balloon was advanced and 2 inflations maximum of 10 atmospheres were done into the first diagonal branch. Following that, a 2.75 x 23 mm Xience Stefani stent was advanced and dilated in the LAD, postdilated at 16 atmospheres. Following that, the balloon was removed and a 3.0 x 12 mm NC Trek balloon was advanced and inflation of proximal segment of the LAD was performed. Following that, the IVUS catheter was introduced and images of the stented segment were performed. Following that, catheter and sheaths were removed hemostasis. Following that, guiding wire, the balloon guide and guiding catheter were removed. The sheath was removed. Hemostasis was obtained with deployment of a TR band. There was no immediate complication. Patient is returned to her room in stable condition. FINDINGS: Successful stenting of the mid LAD with reduction of stenosis from 90% to 0% with NAEL- 3 flow into the diagonal branch and good apposition of the stent by IVUS. RECOMMENDATION: Patient will be continued on aspirin, Brilinta, beta anatoly ADILENE and statin the importance of dual antiplatelet treatment were discussed with the patient who is in full understanding and agreement. Duration of procedure is 80 minutes. MMODL / IJN: [id number] / JE
[2019-06-26] MEDS: METOPROLOL TARTRATE 25 MG TAB PO SCH ×2 (10:18→20:23)
[2019-06-26] MEDS: PANTOPRAZOLE 40 MG TABLET PO SCH (10:19)
[2019-06-26 12:11] LABS: Glucose,Whole Blood 111 mg/dL (75-99)
--- NOTE | 2019-06-26 15:45 | P.PN ---
Subjective Progress Note Date: 06/26/19 Principal diagnosis: STEMI This is 63-year-old female admitted with acute STEMI, status post cardiac catheterization with angioplasty and stenting of the circumflex. Cardiac cathet erization reported LAD stenosis, scheduled to return for cardiac cath in a.m. sitting up in chair, telemetry sinus rhythm. Complains of left-sided chest pressure accompanied by shortness of breath radiating to posterior left shoulder blade, intermittent, lasting for a few minutes, then resolves. 06/26/2019 underwent cardiac cath this morning with successful stenting to the mid LAD. Tolerated procedure well. Telemetry sinus bradycardia to sinus rhythm. Heart rates down as low as 49 post procedure. Denies chest pain, palpitations or shortness of breath. Denies lightheadedness, dizziness or focal deficits. Blood sugars controlled. Objective - Vital Signs Vital signs: Vital Signs Temp 97.7 F 06/26/19 12:00 Pulse 55 L 06/26/19 12:00 Resp 12 06/26/19 12:00 BP 113/70 06/26/19 12:00 Pulse Ox 96 06/26/19 12:00 Intake & Output 06/25/19 06/26/19 06/26/19 18:59 06:59 18:59 Intake Total 440 206 Balance 440 206 Weight 89.3 kg Intake: IV 206 Oral 440 Other: Voiding Method Toilet Bedpan # Voids 2 2 - Exam PHYSICAL EXAM: VITAL SIGNS: As above GENERAL: Lying in bed, no acute distress HEENT: Conjunctivae normal. eyes normal. Oral mucosa moist NECK: No JVD. No thyroid enlargement. No LNs CARDIOVASCULAR: S1, S2 regular.. No murmur RESPIRATION: Breath sounds diminished in the bases. No rhonchi or crackles. No bronchial breathing. No wheezing. ABDOMEN: Soft, nontender . No guarding. no masses palpable.Bowel sounds heard. LEGS: No edema. no swelling PSYCHIATRY: Alert and oriented X3, mood and affect normal. NERVOUS SYSTEM: Cranial N 2-12 grossly normal. Moves all 4 limbs. Diffuse weakness, No focal deficits. Strength and sensation grossly intact.. Skin: no lesions, no rash - Labs CBC & Chem 7: 06/23/19 22:33 06/26/19 05:12 Labs: Abnormal Lab Results - Last 24 Hours (Table) 06/25/19 06/26/19 06/26/19 Range/Units 16:50 05:12 06:45 Chloride 111 H (98-107) mmol/L POC Glucose (mg/dL) 104 H 100 H (75-99) mg/dL 06/26/19 Range/Units 12:00 Chloride (98-107) mmol/L POC Glucose (mg/dL) 111 H (75-99) mg/dL Assessment and Plan Assessment: -Acute STEMI, status post cardiac catheterization, PTCA with stenting of circumflex, repeat cardiac catheterization with stenting of mid LAD. -Diabetes mellitus -Hypertension -Morbid obesity, BMI 39.8 -Dyslipidemia -CAD, proximal LAD stenosis -Former nicotine dependence Plan: Continue on current medication regime ,monitoring and symptomatic treatment. Postprocedure, patient presented with mild intermittent bradycardia as mentioned above, heart rates as low as 49, beta anatoly had been increased prior to catheterization, possibly decrease beta anatoly dose as per cardiology. Aggressive pulmonary toileting reenforced. Further recommendations to follow. The impression and plan of care has been dictated as directed. : I performed a history and examination of this patient, discussed the same with the dictator. I agree with the dictator's note ,documented as a scribe. Any additional findings or plans will be noted.
[2019-06-26 16:49] LABS: Glucose,Whole Blood 100 mg/dL (75-99)
[2019-06-26] MEDS: LISINOPRIL 5 MG TAB PO SCH (20:23)
[2019-06-26 20:40] LABS: Glucose,Whole Blood 112 mg/dL (75-99)
[2019-06-27] MEDS: ACETAMINOPHEN TAB 325 MG TAB PO PRN (01:39)
[2019-06-27 05:37] LABS: Calcium 9.3 mg/dL (8.4-10.2); Potassium 4.1 mmol/L (3.5-5.1)
[2019-06-27] MEDS: LEVOTHYROXINE 100 MCG TAB PO SCH (05:39)
[2019-06-27 07:12] LABS: Glucose,Whole Blood 103 mg/dL (75-99)
[2019-06-27] MEDS: PANTOPRAZOLE 40 MG TABLET PO SCH (08:26)
[2019-06-27] MEDS: TICAGRELOR 90 MG TAB PO SCH (08:26)
[2019-06-27] MEDS: ASPIRIN 81 MG PO SCH (08:27)
[2019-06-27] MEDS: METOPROLOL TARTRATE 25 MG TAB PO SCH (08:27)
[2019-06-27] MEDS: ATORVASTATIN 80 MG TAB PO SCH (08:27)
[2019-06-27 08:33] VITALS: RESP 12
[2019-06-27] MEDS: LISINOPRIL 5 MG TAB PO SCH (10:15)
[2019-06-27] MEDS ORDERED: LISINOPRIL 5 MG TAB PO ONE (11:00)
--- NOTE | 2019-06-27 11:33 | P.DS ---
Providers Date of admission: 06/23/19 22:35 Expected date of discharge: 06/27/19 Attending physician: Eric Oliva Consults: 06/23/19 22:34 Consult Physician Stat Consulting Provider: Koirna Camara Consult Reason/Comments: STEMI ACTIVATION COMPLETE Do you want consulting provider notified?: Yes 06/23/19 23:52 Consult Physician Routine Consulting Provider: Korina Camara Consult Reason/Comments: Post Interventional patient Do you want consulting provider notified?: Already Contacted 06/26/19 09:11 Consult Physician Routine Consulting Provider: Korina Camara Consult Reason/Comments: Post Interventional patient Do you want consulting provider notified?: Already Contacted [facility] Course: Final Diagnoses: -Acute STEMI, status post cardiac catheterization, PTCA with stenting of circumflex, repeat cardiac catheterization with stenting of mid LAD. -Diabetes mellitus -Hypertension -Morbid obesity, BMI 39.8 -Dyslipidemia -CAD, proximal LAD stenosis -Former nicotine dependence Hospital course:This is 63-year-old female admitted with acute STEMI, status post cardiac catheterization with angioplasty and stenting of the circumflex. Cardiac catheterization reported LAD stenosis, scheduled to return for cardiac cath in a.m. sitting up in chair, telemetry sinus rhythm. Complains of left- sided chest pressure accompanied by shortness of breath radiating to posterior left shoulder blade, intermittent, lasting for a few minutes, then resolves. 06/26/2019 underwent cardiac cath this morning with successful stenting to the mid LAD. Tolerated procedure well. Telemetry sinus bradycardia to sinus rhythm. Heart rates down as low as 49 post procedure. Denies chest pain, palpitations or shortness of breath. Denies lightheadedness, dizziness or focal deficits. Blood sugars controlled. Significant clinical improvement. No further chest pain, palpitations or shortness of breath. Denies lightheadedness, dizziness or focal deficits. Ambulating in hallway, tolerating exertion well. Cleared by cardiology for discharge. Patient is being discharged home in stable condition with guarded prognosis. EXAM: GENERAL: Alert and oriented 3, no acute distress CARDIOVASCULAR: S1, S2 regular.. No murmur RESPIRATION: Breath sounds diminished in the bases. No rhonchi or crackles. No wheezing. ABDOMEN: Soft, nontender . No guarding. no masses palpable.Bowel sounds heard. NERVOUS SYSTEM: No focal deficits. The impression and plan of care has been dictated as directed. : I performed a history and examination of this patient, discussed the same with the dictator. I agree with the dictator's note ,documented as a scribe. Any additional findings or plans will be noted. Patient Condition at Discharge: Stable Plan - Discharge Summary Discharge Rx Participant: Yes New Discharge Prescriptions: New Ticagrelor [Brilinta] 90 mg PO BID #60 tab Aspirin EC [Ecotrin Low Dose] 81 mg PO DAILY #30 tablet. Atorvastatin [Lipitor] 80 mg PO DAILY #30 tab Nitroglycerin Sl Tabs [Nitrostat] 0.4 mg SUBLINGUAL Q5M PRN #100 tab PRN Reason: Chest Pain Metoprolol Succinate (ER) [Toprol XL] 25 mg PO DAILY #30 tab.er.24h Lisinopril [Zestril] 10 mg PO HS #30 tab Continue Levothyroxine Sodium 200 mcg PO DAILY metFORMIN HCL 250 mg PO DAILY Omeprazole 20 mg PO DAILY Albuterol Inhaler [Ventolin Hfa Inhaler] 1 puff INHALATION RT-QID PRN PRN Reason: Shortness Of Breath Or Wheezing Discontinued Lisinopril [Zestril] 2.5 mg PO DAILY Discharge Medication List Albuterol Inhaler [Ventolin Hfa Inhaler] 1 puff INHALATION RT-QID PRN 02/06/19 [History] Levothyroxine Sodium 200 mcg PO DAILY 02/06/19 [History] Omeprazole 20 mg PO DAILY 02/06/19 [History] metFORMIN HCL 250 mg PO DAILY 02/06/19 [History] Aspirin EC [Ecotrin Low Dose] 81 mg PO DAILY #30 tablet. 06/27/19 [Rx] Atorvastatin [Lipitor] 80 mg PO DAILY #30 tab 06/27/19 [Rx] Lisinopril [Zestril] 10 mg PO HS #30 tab 06/27/19 [Rx] Metoprolol Succinate (ER) [Toprol XL] 25 mg PO DAILY #30 tab.er.24h 06/27/19 [Rx] Nitroglycerin Sl Tabs [Nitrostat] 0.4 mg SUBLINGUAL Q5M PRN #100 tab 06/27/19 [Rx] Ticagrelor [Brilinta] 90 mg PO BID #60 tab 06/27/19 [Rx] Follow up Appointment(s)/Referral(s): Erick Barbosa MD [STAFF PHYSICIAN] - 1 Week Eric Oliva MD [Primary Care Provider] - 3 Days Ambulatory/Diagnostic Orders: Complete Blood Count w/diff [LAB.AMB] Time Frame: 3 Days, Location: None Selected Activity/Diet/Wound Care/Special Instructions: pending cardiology final dc rec & clearance
[2019-06-27 11:50] LABS: Glucose,Whole Blood 94 mg/dL (75-99)
[2019-06-27 12:12] VITALS: BP 132/72; PULSE 62; TEMP 97.9
--- NOTE | 2019-06-27 13:17 | P.PN ---
Subjective Patient is doing well. No chest discomfort dizziness lightheadedness She's ablating in the ICU no shortness of breath Heart sounds S1-S2 normal no murmurs or gallops or rub Breath sounds are clear no rhonchi no crackles Abdomen soft nontender Extended is warm no edema Impression Patient presented with an acute myocardial infarction, acute inferoposterior Status post stenting to the left circumflex Status post stenting to the LAD and PTCA of the diagonal vessel Mild ischemic cardio myopathy with reduced LV systolic function of 45% Inferior posterior hypokinesis Current smoker Suggest Continue Brilinta. Patient has been approved for Brilinta but she will get it only once every month regular 3 month supplies Continue aspirin Continue atorvastatin Switched to metoprolol succinate 25 mg in the morning Switched to Zestril 10 mg in the evening Follow-up with Dr. grewal within 2 weeks Follow-up LV function assessment and monitoring Objective - Vital Signs Vital signs: Vital Signs Temp 97.9 F 06/27/19 12:00 Pulse 62 06/27/19 12:00 Resp 12 06/27/19 12:00 BP 132/72 06/27/19 12:00 Pulse Ox 94 L 06/27/19 12:00 Intake & Output 06/26/19 06/27/19 06/27/19 18:59 06:59 18:59 Intake Total 1436 240 Balance 1436 240 Weight 88 kg Intake: IV 956 Sodium Chloride 0.9% 1, 750 000 ml @ 100 mls/hr IV . Q10H [facility] Rx#:[id number] Oral 480 240 Other: Voiding Method Bedpan # Voids 3 2 1 - Labs CBC & Chem 7: 06/23/19 22:33 06/27/19 05:07 Labs: Abnormal Lab Results - Last 24 Hours (Table) 06/26/19 06/26/19 06/27/19 Range/Units 16:38 20:28 05:07 Chloride 111 H (98-107) mmol/L POC Glucose (mg/dL) 100 H 112 H (75-99) mg/dL 06/27/19 Range/Units 07:01 Chloride (98-107) mmol/L POC Glucose (mg/dL) 103 H (75-99) mg/dL
[2019-06-27] MEDS ORDERED: LISINOPRIL 10 MG TAB PO SCH (21:00)
[2019-06-28] MEDS ORDERED: METOPROLOL SUCCINATE (ER) 25 MG TAB.ER.24H PO SCH (09:00)
[2019-06-28] MEDS ORDERED: LISINOPRIL 10 MG TAB PO SCH (09:00)
== END 2019-06-27 14:58 | disposition home or self-care (01) | DRG 247 ==
LOC: EC 22:24 → 2SICU 22:35
PROVIDERS: ADMIT Family Medicine; ATTEND Family Medicine
PROC: 027034Z Dilation of Coronary Artery, One Artery with Drug-eluting Intraluminal Device, Percutaneous Approach (ICD-10-PCS; principal; 2019-06-24)
PROC: B2161ZZ Fluoroscopy of Right and Left Heart using Low Osmolar Contrast (ICD-10-PCS; 2019-06-24)
PROC: 027034Z Dilation of Coronary Artery, One Artery with Drug-eluting Intraluminal Device, Percutaneous Approach (ICD-10-PCS; 2019-06-26 07:30)
DX: I21.19 ST elevation (STEMI) myocardial infarction involving other coronary artery of inferior wall (principal); E03.9 Hypothyroidism, unspecified; E11.9 Type 2 diabetes mellitus without complications; E66.01 Morbid (severe) obesity due to excess calories; K21.9 Gastro-esophageal reflux disease without esophagitis; J44.9 Chronic obstructive pulmonary disease, unspecified; E78.5 Hyperlipidemia, unspecified; F17.200 Nicotine dependence, unspecified, uncomplicated; Z96.641 Presence of right artificial hip joint; I25.82 Chronic total occlusion of coronary artery; I25.5 Ischemic cardiomyopathy; I10 Essential (primary) hypertension; R00.1 Bradycardia, unspecified; I25.10 Atherosclerotic heart disease of native coronary artery without angina pectoris; Z68.39 Body mass index [BMI] 39.0-39.9, adult; I25.2 Old myocardial infarction; Z79.84 Long term (current) use of oral hypoglycemic drugs; Z79.890 Hormone replacement therapy; Z79.899 Other long term (current) drug therapy; Z82.49 Family history of ischemic heart disease and other diseases of the circulatory system; Z90.710 Acquired absence of both cervix and uterus; Z87.01 Personal history of pneumonia (recurrent)
CPT/HCPCS: 71045; 80048; 80053; 80061; 84484; 85025; 85347; 85610; 85730; 92978; 93005; 93306; 93458; 96374; 96375; 99291; C1874

== ENCOUNTER → 2019-08-06 | Outpatient (CLI) | payer OTHER ==
[~2019-08-06] MED LIST changes: +AMINOPHYLLINE 500 MG/20 ML VIAL IV ONE; -DEXAMETHASONE SOD PHOSPHATE 10 MG/ML 1 ML VIAL IV ONE; -HYDROmorphone 0.5 MG/0.5 ML SYRINGE IVP PRN; -LACTATED RINGERS 1,000 ML IV SCH; -LIDOCAINE 1% 20 ML VIAL (10MG/ML) FOR IV START INTRADERMA PRN; -MIDAZOLAM 2 MG/2 ML VIAL IV PRN; -ONDANSETRON 4 MG/2 ML VIAL IVP ONE; +REGADENOSON 0.4 MG/5 ML SYRINGE IV ONE; -SCOPOLAMINE 1.5MG/72HR PATCH TRANSDERM ONE
--- NOTE | 2019-08-06 11:44 | EST ---
EXERCISE STRESS AGE: 64 SEX: F HT: 4'11" WT: 193 PROTOCOL: Lexiscan Cardiolite Stress Test HEART RATE REST: 57 BLOOD PRESSURE REST: 115/71 MAXIMUM HEART RATE ACHIEVED: 93 MAXIMUM BLOOD PRESSURE: 167/91 85% MPHR: 133 100% MPHR: 156 INDICATIONS: Chest pain. CLINICAL INFORMATION: Baseline EKG shows sinus bradycardia with poor R-wave progression. The patient was given intravenous Lexiscan as per protocol. Did not have chest pain or diagnostic ST- segment depression. CONCLUSION: 1. Negative stress test by EKG criteria. 2. Cardiolite portion of the stress test will be reported separately. MMODL / IJN: [id number] /
--- NOTE | 2019-08-06 12:35 | NM ---
EXAMINATION TYPE: NM stress lexiscan cardiolite DATE OF EXAM: 08/06/2019 COMPARISON: NONE HISTORY: Dyspnea TECHNIQUE: After the intravenous administration of 9.8 mCi Tc 99m Sestamibi - Cardiolite resting SPE CT images acquired 50 minutes post injection. The patient received 0.4mg Lexiscan, 25.9 mCi Tc 99m Sestamibi - Stress images obtained [address] injection FINDINGS: Review of stress and rest SPECT images demonstrates no distinct perfusion abnormality. Rest imaging d emonstrates an inferior wall defect that does not persist on stress imaging is attributable to adjace nt GI attenuation. Physiologic apical thinning is seen. TID is calculated within normal limits at 0.9 3. Gated analysis shows normal wall motion with an estimated left ventricular ejection fraction of 6 0 %. IMPRESSION: No scintigraphic evidence for reversible ischemia.
== END | disposition home or self-care (01) ==
LOC: RADNMMAIN 08:20
PROVIDERS: ATTEND Family Medicine
DX: R06.00 Dyspnea, unspecified (principal)
CPT/HCPCS: 93017; 78452; A9500; J2785

== ENCOUNTER 2021-05-27 07:52 | Day surgery (SDC) | payer MEDICARE, OTHER ==
[2021-05-26 09:02] VITALS: BMI 41.8
[~2021-05-27 07:52] MED LIST changes: +ALPRAZolam 0.25 MG TAB PO PRN; +ALPRAZolam 0.5 MG TAB PO PRN; -AMINOPHYLLINE 500 MG/20 ML VIAL IV ONE; +ASPIRIN 325 MG TAB PO STA; +HEPARIN SODIUM,PORCINE 10,000 UNIT in SODIUM CHLORIDE 0.9% 1,000 ML IRRIGATION PRN; +HEPARIN SODIUM,PORCINE 2,500 UNIT in SODIUM CHLORIDE 0.9% 250 ML IRRIGATION PRN; +NITROGLYCERIN SL TABS 0.4 MG TAB SUBLINGUAL PRN; -REGADENOSON 0.4 MG/5 ML SYRINGE IV ONE; +SODIUM CHLORIDE 0.9% 1,000 ML in EMPTY BAG 1 BAG IV ONE
[2021-05-27 08:24] VITALS: RESP 18; TEMP 98
[2021-05-27 08:32] LABS: Basophils # (A) 0.1 k/uL (0-0.2); Basophils % (A) 1 %; Eosinophils # (A) 0.2 k/uL (0-0.7); Eosinophils % (A) 3 %; HCT 43.3 % (34.0-46.0); HGB 14.3 gm/dL (11.4-16.0); Lymphocytes # (A) 1.8 k/uL (1.0-4.8); Lymphocytes % (A) 21 %; MCH 30.7 pg (25.0-35.0); Mean Platelet Volume 8.7; Monocytes # (A) 0.4 k/uL (0-1.0); Monocytes % (A) 4 %; Neutrophils # (A) 5.8 k/uL (1.3-7.7); Neutrophils % (A) 69 %; Platelet Count 183 k/uL (150-450); RBC 4.65 m/uL (3.80-5.40); RDW 15.3 % (11.5-15.5); WBC 8.4 k/uL (3.8-10.6)
[2021-05-27] MEDS ORDERED: fentaNYL (PF) 50 MCG/ML 2 ML AMP ONE (08:55)
[2021-05-27] MEDS ORDERED: HEPARIN SODIUM 1,000 UN/ML (10ML VL) ONE (08:55)
[2021-05-27] MEDS ORDERED: fentaNYL (PF) 50 MCG/ML 2 ML AMP IV ONE (09:38)
[2021-05-27 09:39] LABS: Calcium 9.4 mg/dL (8.4-10.2)
[2021-05-27] MEDS ORDERED: LIDOCAINE 1% INJ 10MG/ML (20 ML MDV) SQ ONE (09:42)
[2021-05-27] MEDS ORDERED: MIDAZOLAM 2 MG/2 ML VIAL IV ONE (09:43)
[2021-05-27 09:45] LABS: Potassium 4.9 mmol/L (3.5-5.1)
[2021-05-27] MEDS ORDERED: HEPARIN SODIUM 1,000 UN/ML (10ML VL) IV ONE (09:48)
[2021-05-27] MEDS ORDERED: IOPAMIDOL-370 125ML BTL INJ ONE (10:17)
[2021-05-27] MEDS ORDERED: ATROPINE SULFATE 0.1 MG/ML 10ML SYRINGE IV PRN (10:35)
[2021-05-27] MEDS ORDERED: NITROGLYCERIN SL TABS 0.4 MG TAB SUBLINGUAL PRN (10:35)
[2021-05-27] MEDS ORDERED: ZOLPIDEM 5 MG TAB PO PRN (10:35)
[2021-05-27] MEDS ORDERED: MAG HYDROX/AL HYDROX/SIMETH 30 ML CUP PO PRN (10:35)
[2021-05-27] MEDS ORDERED: RX INFO: IV CONTRAST WAS GIVEN 1 EACH MISC MISCELLANE PRN (10:35)
[2021-05-27] MEDS ORDERED: SODIUM CHLORIDE 0.9% 1,000 ML IV SCH (10:45)
[2021-05-27 15:34] VITALS: BP 105/59; PULSE 66
--- NOTE | 2021-05-27 16:01 | CC ---
CARDIAC CATHETERIZATION REPORT Mrs. Barillas is a 65-year-old female with a known history of coronary artery disease, status post stenting of left circumflex and the LAD in 2019. She has been followed by Dr. Barbosa and recently underwent myocardial perfusion imaging that showed evidence of apical ischemia. In view of that, recommendation was made regarding cardiac catheterization. The procedure as well as its risks and complications were discussed with the patient, who was in full understanding and agreement. PROCEDURE DESCRIPTION: Patient was brought to the lab technician in a fasting, semi-sedated state after receiving fentanyl and Benadryl and achieving a moderate conscious sedated state. Using Xylocaine anesthesia and Seldinger technique, a 6-[place] sheath was introduced in the right radial artery. Selective right and left coronary angiography was performed using 5-[place] 3.5 bend right and left Edilia catheters. Multiple views were taken of the arteries, including hemiaxial views. The left Edilia catheter was used to cross the aortic valve. Left ventricular end-diastolic pressure was calculated. Following that, catheters were removed and images were reviewed. FINDINGS: LEFT MAIN: This is a large-sized vessel bifurcating into left circumflex and left anterior descending artery. Left main coronary artery has no evidence of high-grade stenosis. LEFT ANTERIOR DESCENDING CORONARY ARTERY: This is a large-sized vessel reaching to the apex. It tapers down in the distal third, giving rise to a moderately sized diagonal branch in the proximal segment. The stented segment in the proximal LAD is patent. There is about 20% in-stent restenosis. The diagonal branch takeoff has an 85% to 90% stenosis, unchanged since 2019. LEFT CIRCUMFLEX: This is a large nondominant vessel giving rise to two obtuse marginal branches. The proximal left circumflex has 95% stenosis proximal to the edge of the stented segment. Following the stented segment at the takeoff of the first obtuse marginal branch there is a 50% to 60% plaque, unchanged compared to 2019. RIGHT CORONARY ARTERY: This is a large dominant vessel bifurcating distally into PDA and posterolateral segment and branches. The right coronary artery in mid segment has 10% to 20% plaque without any evidence of high-grade stenosis. LEFT VENTRICULOGRAM: Left ventriculogram was not performed. HEMODYNAMICS: There was no gradient across the aortic valve. The left ventricular end- diastolic pressure was calculated at 10 to 15 mmHg. CONCLUSION: 1. Critical stenosis in the proximal left circumflex proximal to the stented segment. 2. Patent stent in the LAD with significant disease in the ostium of the diagonal branch, unchanged compared to 2019. 3. Mild disease in the right coronary artery. RECOMMENDATIONS: In view of findings and anatomy, I have recommended proceeding with angioplasty and stenting of the left circumflex. The procedure, its risks and complications were discussed with the patient, who is in full understanding and agreement. MMODL / IJN: [id number] /
--- NOTE | 2021-05-27 16:05 | PTCA ---
PERCUTANEOUSTRANS CORORONARY ANGIOGRAPHY Mrs. Barillas is a 65-year-old female with a history of coronary artery disease who recently had abnormal myocardial perfusion imaging, underwent cardiac catheterization and was found to have critical stenosis involving the proximal left circumflex. In view of that, recommendation was made regarding angioplasty and stenting. The procedure as well as its risks and complications were discussed with the patient, who was in full understanding and agreement. PROCEDURE DESCRIPTION: A 6-[place] FL3.5 guiding catheter was introduced into the system. After cannulating the left main, a 0.014 balanced medium weight J-wire was advanced across the lesion and positioned distally. Subsequently a 2.5 x 12 mm NC Trek balloon was advanced and one inflation at 8 atmospheres was done. Following that, the balloon was removed and a 2.75 x 18 mm Xience [place] stent was deployed and post-dilated at 16 atmospheres. After the last inflation, after appropriate wait, the balloon and the guidewire were withdrawn back into the guiding catheter. Images were obtained and repeated. Those images revealed stable successful stenting. At that point, the guiding catheter, the balloon and the guidewire were removed. The sheath was removed. Hemostasis was obtained with deployment of a TR band. There was no immediate complication. Patient was returned to her room in stable condition. Of note, the patient received a total of 6500 units of intravenous heparin and her ACT was followed. She was continued on clopidogrel. She had chest discomfort and EKG changes with the inflation that resolved at the end of the procedure. RESULTS: Successful stenting of the proximal left circumflex with reduction of stenosis from 95% to 0%. The patient has a 50% to 60% plaque in the mid circumflex at the takeoff of the first diagonal branch that has not progressed. RECOMMENDATIONS: Patient will be continued on aspirin, Plavix and statin. The importance of dual antiplatelet treatment was discussed with the patient and her family, who are in full understanding and agreement. Duration of sedation was 35 minutes. MMODL / IJN: [id number] /
[2021-05-27] MEDS ORDERED: lisinopriL 5 MG TAB PO SCH (17:00)
[2021-05-27] MEDS ORDERED: ATORVASTATIN 80 MG TAB PO SCH (21:00)
[2021-05-27] MEDS ORDERED: EZETIMIBE 10 MG TAB PO SCH (21:00)
[2021-05-28] MEDS ORDERED: LEVOTHYROXINE 100 MCG TAB PO SCH (06:30)
[2021-05-28] MEDS ORDERED: CLOPIDOGREL 75 MG TAB PO SCH (09:00)
[2021-05-28] MEDS ORDERED: METOPROLOL SUCCINATE (ER) 25 MG TAB.ER.24H PO SCH (09:00)
[2021-05-28] MEDS ORDERED: ASPIRIN 81 MG PO SCH (09:00)
== END 2021-05-27 15:34 | disposition home or self-care (01) ==
LOC: CATHCVL 07:52
PROVIDERS: ATTEND Internal Medicine Interventional Cardiology
DX: I25.10 Atherosclerotic heart disease of native coronary artery without angina pectoris (principal); E11.9 Type 2 diabetes mellitus without complications; I10 Essential (primary) hypertension; E78.5 Hyperlipidemia, unspecified; F17.210 Nicotine dependence, cigarettes, uncomplicated; Z82.49 Family history of ischemic heart disease and other diseases of the circulatory system; Z95.5 Presence of coronary angioplasty implant and graft
CPT/HCPCS: 93458; 80048; 85025; 87635; C9600; C1769 ×2; C1887; C1894; C1725; C1874; J2250; J2001; J3010; J1644; Q9967

== ENCOUNTER → 2021-06-04 | Outpatient (CLI) | payer MEDICARE, OTHER ==
[2021-06-05 00:55] LABS: Chol/HDL Ratio 3.17 Ratio; HDL Cholesterol 36.6 mg/dL (40.00-60.00); LDL Cholesterol,Calculated 51.4 mg/dL (0.0-131.0)
== END | disposition home or self-care (01) ==
LOC: LABWHC1 09:09
PROVIDERS: ATTEND Nurse Practitioner Adult Health
DX: E78.5 Hyperlipidemia, unspecified (principal)
CPT/HCPCS: 36415; 80061

== ENCOUNTER → 2022-03-04 | Day surgery (SDC) | payer MEDICARE, OTHER ==
[2022-03-03 09:27] VITALS: BMI 39.4
[~2022-03-04] MED LIST changes: -ALPRAZolam 0.25 MG TAB PO PRN; -ALPRAZolam 0.5 MG TAB PO PRN; -ASPIRIN 325 MG TAB PO STA; -HEPARIN SODIUM,PORCINE 10,000 UNIT in SODIUM CHLORIDE 0.9% 1,000 ML IRRIGATION PRN; -HEPARIN SODIUM,PORCINE 2,500 UNIT in SODIUM CHLORIDE 0.9% 250 ML IRRIGATION PRN; +LACTATED RINGERS 1,000 ML IV SCH; +LIDOCAINE 1% (10MG/ML) FOR IV START INTRADERMA PRN; -NITROGLYCERIN SL TABS 0.4 MG TAB SUBLINGUAL PRN; +PROPOFOL 10 MG/ML 20 ML VIAL IV ONE; -SODIUM CHLORIDE 0.9% 1,000 ML in EMPTY BAG 1 BAG IV ONE
[2022-03-04 07:35] VITALS: RESP 16; TEMP 97.1
[2022-03-04 07:43] LABS: Glucose,Whole Blood 100 mg/dL (70-110)
--- NOTE | 2022-03-04 08:00 | P.GSHP ---
History of Present Illness H&P Date: 03/04/22 Chief Complaint: Diverticulitis, constipation The cystic 6-year-old female with previous history of diverticulitis and constipation. Patient's today for colonoscopy. Past Medical History Past Medical History: Atrial Flutter, Asthma, COPD, Diabetes Mellitus, GERD/Reflux, Hyperlipidemia, Hypertension, Osteoarthritis (OA), Pneumonia, Thyroid Disorder Additional Past Medical History / Comment(s): Diet Controlled Diabetes, MASS SEEN ON CT-SCAN SEVERAL MONTHS AGO History of Any Multi-Drug Resistant Organisms: None Reported Past Surgical History: Heart Catheterization, Hysterectomy, Joint Replacement Additional Past Surgical History / Comment(s): CYST REMOVAL FROM HEAD AND SHOULDER. RIGHT HIP REPLACEMENT. COLONOSCOPY. BILAT CATARACTS REMOVED WITH LENS IMPLANTS Past Anesthesia/Blood Transfusion Reactions: Motion Sickness, Postoperative Nausea & Vomiting (PONV) Smoking Status: Former smoker - Past Family History Father Family Medical History: Deep Vein Thrombosis (DVT) Additional Family Medical History / Comment(s): cabg x4 Medications and Allergies Home Medications Medication Instructions Recorded Confirmed Type Levothyroxine Sodium 200 mcg PO QAM 02/06/19 03/04/22 History Aspirin EC [Ecotrin Low Dose] 81 mg PO DAILY #30 tablet. 06/27/19 03/03/22 Rx Atorvastatin [Lipitor] 80 mg PO HS 05/05/21 03/04/22 History Clopidogrel [Plavix] 75 mg PO QAM 05/05/21 03/03/22 History Ezetimibe [Zetia] 10 mg PO HS 05/05/21 03/04/22 History Metoprolol Succinate (ER) [Toprol 25 mg PO QAM 05/05/21 03/04/22 History XL] lisinopriL [Zestril] 25 mg PO 1700 05/05/21 03/04/22 History Allergies Allergy/AdvReac Type Severity Reaction Status Date / Time codeine Allergy Rash/Hives Verified 03/04/22 07:25 doxycycline [From Vibramycin] Allergy Rash/Hives Verified 03/04/22 07:25 Surgical - Exam Vital Signs Temp Pulse Resp BP Pulse Ox 97.1 F L 95 16 123/61 92 L 03/04/22 07:28 03/04/22 07:28 03/04/22 07:28 03/04/22 07:28 03/04/22 07:28 - General well developed, well nourished, no distress - Eyes PERRL - ENT normal pinna - Neck no masses - Respiratory normal expansion - Cardiovascular Rhythm: regular - Abdomen Abdomen: soft, non tender Assessment and Plan Assessment: Diverticulitis, constipation. We'll perform colonoscopy.
--- NOTE | 2022-03-04 08:14 | P.OP ---
Date of Procedure: 03/04/22 Preoperative Diagnosis: History of diverticulitis Constipation Postoperative Diagnosis: Diverticulosis Procedure(s) Performed: Colonoscopy Anesthesia: MAC Surgeon: Enoc Edwards Pathology: none sent Condition: stable Disposition: PACU Description of Procedure: The patient's placed on the endoscopy table in the lateral position. She received IV sedation. Digital rectal exam was performed. This revealed a few external and internal hemorrhoids. The flexible colonoscope was then placed patient anus and passed throughout the colon. The scope was passed beyond the sigmoid colon secondary to tortuosity of the bowel. Diverticulosis was noted. The scope was then brought back. The visualized rectum appeared normal. Scope withdrawn for patient. Patient was scheduled for a barium enema.
[2022-03-04 08:38] VITALS: BP 133/83; PULSE 78
--- NOTE | 2022-03-05 22:00 | XR ---
EXAMINATION TYPE: XR KUB DATE OF EXAM: 03/04/2022 COMPARISON: CT dated 12/17/2021 INDICATION: Pain in limb for barium enema TECHNIQUE: Single upright x-ray of the abdomen FINDINGS: Excessive colonic gas is appreciated after incomplete colonoscopy. The patient will be scheduled for barium enema next morning. IMPRESSION: As above.
== END | disposition home or self-care (01) ==
LOC: ORWHC2ENDO 07:12
PROVIDERS: ATTEND Surgery
DX: K57.30 Diverticulosis of large intestine without perforation or abscess without bleeding (principal); K64.8 Other hemorrhoids; K64.4 Residual hemorrhoidal skin tags; K63.89 Other specified diseases of intestine; Z88.5 Allergy status to narcotic agent; Z88.1 Allergy status to other antibiotic agents; Z87.19 Personal history of other diseases of the digestive system; I48.92 Unspecified atrial flutter; J44.9 Chronic obstructive pulmonary disease, unspecified; E11.69 Type 2 diabetes mellitus with other specified complication; E78.5 Hyperlipidemia, unspecified; K21.9 Gastro-esophageal reflux disease without esophagitis; I10 Essential (primary) hypertension; M19.90 Unspecified osteoarthritis, unspecified site; E07.9 Disorder of thyroid, unspecified; Z95.5 Presence of coronary angioplasty implant and graft; Z87.891 Personal history of nicotine dependence; Z82.49 Family history of ischemic heart disease and other diseases of the circulatory system; Z79.890 Hormone replacement therapy; Z79.01 Long term (current) use of anticoagulants; Z79.899 Other long term (current) drug therapy; Z79.82 Long term (current) use of aspirin; I25.2 Old myocardial infarction
CPT/HCPCS: 74018; 45378; J2704

== ENCOUNTER → 2022-03-05 | Outpatient (CLI) | payer MEDICARE, OTHER ==
--- NOTE | 2022-03-05 09:42 | FL ---
EXAMINATION TYPE: FL barium enema DATE OF EXAM: 03/05/2022 COMPARISON: Correlation outside CT 12/17/2021 HISTORY: 66-year-old female diverticulitis. Abnormal outside CT from 12/17/2021 reporting a 3.1 cm thi n-walled cystic area at the cecum. TECHNIQUE: A double contrast barium enema study is attempted. A total of 43 seconds of fluoroscopic time was utilized during procedure and 6 images obtained. FINDINGS: Client Support Coordinator view of the abdomen shows overall non-obstructive bowel gas pattern. Only minimal ga s within the right side of the colon. Multiple attempts were made at placement of the rectal catheter. On all attempts, the catheter appear ed to be low in position on the fluoroscopic images despite the catheter being advanced to the greate st extent possible. The balloon was inflated and resulted in pronounced discomfort. The patient chose to proceed but as soon as rectal contrast was instilled, patient was unable to continue IMPRESSION: Incomplete barium enema. Patient was unable to continue after initial instillation of contrast.
== END | disposition home or self-care (01) ==
LOC: RADFLMAIN 07:46
PROVIDERS: ATTEND Surgery
DX: K63.89 Other specified diseases of intestine (principal)
CPT/HCPCS: 74270

== ENCOUNTER → 2022-04-21 | Outpatient (CLI) | payer MEDICARE, OTHER ==
--- NOTE | 2022-04-21 18:57 | BD ---
EXAMINATION TYPE: Axial Bone Density DATE OF EXAM: 04/21/2022 COMPARISON: NONE CLINICAL HISTORY: 66 years year old Female. ICD-10 CODE: Z78.0 POST MENOPAUSAL Height: 58 IN Weight: 192 LBS FRAX RISK QUESTIONS: Secondary Osteoporosis: 3. Menopause before 45: TOTAL HYST AGE 40 RISK FACTORS HISTORY OF: Surgery to Hip(right): 2018 Active: YES Diet low in dairy products/other sources of calcium: YES Postmenopausal woman: TOTAL HYST AGE 40 MEDICATIONS: Thyroid Medications: YES Which medication: Levothyroxine How Lon+ YEARS Additional Medications: LEVOTHYROXINE, MOOD STABILIZER,HEART MEDS, BABY ASPIRIN, CHOLESTEROL MEDS, ME TOPROLOL, EXAM MEASUREMENTS: Bone mineral densitometry was performed using the [employer] System. Bone mineral density as measured about the Lumbar spine is: ----- L1-L4(G/cm2): 0.980 T Score Values are as follows: ----- L1: -2.6 ----- L2: -2.1 ----- L3: -0.3 ----- L4: -1.9 ----- L1-L4: -1.7 Bone mineral density BASELINE Bone mineral density about the L hip (g/cm2): 0.709 T Score values are as follows: -----L Neck: -2.4 -----L Total: -1.8 Bone mineral density BASELINE FRAX%s: The graph provided illustrates a 11.5 chance for a major osteoporotic fx and a 2.2 chance for the hips probability for fx in 10 years time. IMPRESSION: Osteopenia (T Score between -2.5 and -1). Note that measurements are bordering on osteoporosis at the left hip. There is slightly increased risk of fracture and the patient may be considered for treatment. Re-Screen 2-5 years. NOTE: T-SCORE=SD OF THE YOUNG ADULT MEAN.
--- NOTE | 2022-04-22 07:50 | MM ---
Reason for Exam: Screening (asymptomatic). Last mammogram was performed 4 year(s) and 4 month(s) ago. Patient History: Menarche at age 13. First Full-Term at age 19. Left ovary removed at age 47. Right ovary removed at age 47. Hysterectomy at age 47. Postmenopausal. Risk Values: [place] 5 year model risk: 1.2%. NCI Lifetime model risk: 4.4%. Prior Study Comparison: 01/06/2015 Bilateral Screening Mammogram, [facility]. 01/14/2016 Bilateral Screening Mammogram, [facility]. 12/30/2017 Bilateral Screening Mammogram, [facility]. Tissue Density: The breast tissue is almost entirely fat. Findings: Analyzed By CAD. There is no suspicious group of microcalcifications or new suspicious mass in either breast. Overall Assessment: Negative, BI-RAD 1 Management: Screening Mammogram of both breasts in 1 year. A clinical breast exam by your physician is recommended on an annual basis and results should be correlated with mammographic findings. Electronically signed and approved by: Milind Fischer M.D. Radiologis
== END | disposition home or self-care (01) ==
LOC: RADMAMWWP 08:14
PROVIDERS: ATTEND Family Medicine
DX: Z12.31 Encounter for screening mammogram for malignant neoplasm of breast (principal); M81.0 Age-related osteoporosis without current pathological fracture; Z78.0 Asymptomatic menopausal state; Z90.710 Acquired absence of both cervix and uterus
CPT/HCPCS: 77063; 77067; 77080

== ENCOUNTER → 2022-05-05 | Outpatient (CLI) | payer MEDICARE, OTHER ==
--- NOTE | 2022-05-05 14:50 | CT ---
EXAMINATION TYPE: CT abdomen pelvis w con DATE OF EXAM: 05/05/2022 COMPARISON: 12/17/2021 INDICATION: Cecal cyst DLP: 1462 mGycm, Automated exposure control for dose reduction was used. CONTRAST: 100 ml mL of Isovue 300. Study performed with Oral Contrast TECHNIQUE: Axial images were obtained from above the diaphragm to the pubic rami in the axial plane a t 5 mm thick sections. Reconstructed images are reviewed on the computer in the coronal plane. FINDINGS: Limited CT sections are obtained the lung bases. There is a 0.3 cm peripheral anterolateral right nisreen ng base nodular density may be a small calcified granuloma.. There is a small hiatal hernia present CT ABDOMEN: Liver: Normal Spleen: Normal Pancreas: Normal Adrenal glands: The adrenal glands are normal. Gallbladder: Normal Kidneys: No masses are evident. No hydronephrosis is present. There is a 2.4 cm cyst of the superio r pole left kidney. Delayed images were obtained through the kidneys, which remain unremarkable. Aorta: Vascular calcification is within the aorta. Inferior vena cava: Normal. CT PELVIS: Loops of bowel within the abdomen and pelvis are normal. Diverticular changes are in the sigmoid col on no acute diverticulitis is evident. Previous hypodensity within the cecum was not identified on th e current examination. No filling defects are identified. There are loops of bowel which are incomp letely distended or lack oral contrast limiting their evaluation. Fecal debris is in the transverse c olon. Appendix: Normal as visualized. Urinary bladder: Limited evaluation due to beam hardening artifact from a right hip prosthesis. Genitourinary structures: Uterus and ovaries are not identified. Osseous structures: No suspicious lytic or sclerotic lesions are evident. Right hip prosthesis is pre sent causing beam hardening artifact. IMPRESSIONS: 1. Punctate nodular density periphery of the anterior lateral right lung. Follow-up exam in 6 months is recommended. 2. Diverticulosis without acute diverticulitis. 3. Left renal cyst. 4. No suspicious cecal cyst.
== END | disposition home or self-care (01) ==
LOC: RADCTMAIN 04-19 15:25
PROVIDERS: ATTEND Family Medicine
DX: N28.1 Cyst of kidney, acquired (principal); R91.8 Other nonspecific abnormal finding of lung field
CPT/HCPCS: 82565; 84520; 74177; 36415; Q9967